=== PATIENT | male | born 1980 | race Caucasian/White ===

== ENCOUNTER 2020-05-27 08:35 | Outpatient (REF) | payer OTHER, SELFPAY ==
[2020-05-27 09:59] LABS: MANUAL DIFF FLAG NO
[2020-05-27 10:18] LABS: Estimated Average Glucose 108 mg/dL; Hemoglobin A1c % 5.4 %
[2020-05-27 10:24] LABS: Basophils Percent Auto 0.3 % (0-2); Eosinophils Absolute Auto 0.1 X10*3/uL (0.0-0.4); Eosinophils Percent Auto 0.9 % (0-4); Hemoglobin 14.2 g/dl (14.0-18.0); Imm Gran Abs Auto 0.01 X10*3/uL (0.00-0.03); Imm Gran Pct Auto 0.1 % (0.0-0.4); Lymphocytes Absolute Auto 2.6 X10*3/uL (1.2-4.9); Lymphocytes Percent Auto 37.4 % (20-40); Mean Corpuscular Hemoglobin 28.3 pg (27.0-33.0); Mean Corpuscular Volume 85.8 fL (80-98); Mean Platelet Volume 10.2 fL (9.4-12.4); Monocytes Absolute Auto 0.5 X10*3/uL (0.1-1.2); Monocytes Percent Auto 7.3 % (2-11); Neutrophils Absolute Auto 3.8 X10*3/uL (2.0-8.3); Platelet Count 293 X10*3/uL (160-400); Red Blood Count 5.01 X10*6/uL (4.60-5.80); Red Cell Distribution Width 12.4 % (11.0-16.0)
[2020-05-27 10:51] LABS: Alanine Aminotransferase 25 U/L (0-40); Albumin Level 4.6 g/dL (3.5-5.0); Alkaline Phosphatase 93 U/L (39-117); Anion Gap 13 (12-20); Aspartate Amino Transferase 22 U/L (5-37); Bilirubin Total 0.3 mg/dL (0.0-1.0); Blood Urea Nitrogen 11 mg/dL (9-16); Calcium 9.3 mg/dL (8.4-10.2); Carbon Dioxide 31 mmol/L (22-29); Chloride 102 mmol/L (96-108); Cholesterol 227 mg/dL; Estimated Glomerular Filt Rate > 60; Glucose Random 105 mg/dL (60-115); HDL Cholesterol 43 mg/dL; LDL Cholesterol Calculated 164 mg/dl; Potassium 4.7 mmol/L (3.3-5.1); Sodium 141 mmol/L (135-145); Total Protein 7.3 g/dL (6.5-8.0); Triglycerides 102 mg/dL
[2020-05-27 11:15] LABS: Free T4 (Free Thyroxine) 0.95 ng/dL (0.71-1.85); Thyroid Stimulating Hormone 1.52 uIU/mL (0.32-4.0)
[2020-05-29 05:29] LABS: Folate 7.2 ng/mL (> or = 4.0); Vitamin B12 856 pg/mL (200-900)
== END 2020-05-27 08:36 | disposition home or self-care (01) ==
LOC: HO.LAB 08:35
PROVIDERS: Visit Provider Internal Medicine
DX: R73.02 Impaired glucose tolerance (oral) (principal); E78.00 Pure hypercholesterolemia, unspecified
CPT/HCPCS: 36415; 80053; 80061; 82607; 82746; 83036; 84439; 84443; 85025

== ENCOUNTER 2021-07-10 11:30 | Outpatient (REF) | payer OTHER, SELFPAY ==
--- NOTE | ~2021-07-10 | XR_ITS ---
EXAMINATION: XR LUMBOSACRAL SPINE CLINICAL INFORMATION: Lower back pain COMPARISON: 03/10/2014 TECHNIQUE: Three views of the lumbosacral spine. FINDINGS: No acute fracture or traumatic malalignment. Vertebral body heights maintained. Disc space heights preserved. Small endplate osteophytes present throughout the lumbar spine. Mild facet arthropathy L4-5 and L5-S1. Mild bilateral sacroiliac arthrosis. Paraspinal soft tissues unremarkable. XR/XR lumbar spine 2-3V IMPRESSION: No acute findings. Small endplate osteophytes present throughout the lumbar spine.
== END 2021-07-10 11:31 | disposition home or self-care (01) ==
LOC: HO.XRAY 11:30
PROVIDERS: PCP Internal Medicine; Visit Provider Internal Medicine
DX: M54.50 Low back pain, unspecified (principal)
CPT/HCPCS: 72100

== ENCOUNTER 2021-11-12 09:51 | Outpatient (REF) | payer OTHER, SELFPAY ==
[2021-11-12 10:17] LABS: MANUAL DIFF FLAG NO
[2021-11-12 10:45] LABS: Basophils Percent Auto 0.5 % (0-2); Eosinophils Absolute Auto 0.1 X10*3/uL (0.0-0.4); Eosinophils Percent Auto 1.3 % (0-4); Hematocrit 41.1 % (42.0-52.0); Hemoglobin 13.8 g/dl (14.0-18.0); Imm Gran Abs Auto 0.02 X10*3/uL (0.00-0.03); Imm Gran Pct Auto 0.3 % (0.0-0.4); Lymphocytes Absolute Auto 2.6 X10*3/uL (1.2-4.9); Lymphocytes Percent Auto 43.1 % (20-40); Mean Corpuscular HGB Conc 33.6 g/dl (31.0-36.0); Mean Corpuscular Hemoglobin 28.5 pg (27.0-33.0); Mean Corpuscular Volume 84.9 fL (80.0-98.0); Mean Platelet Volume 9.5 fL (9.4-12.4); Monocytes Absolute Auto 0.5 X10*3/uL (0.1-1.2); Monocytes Percent Auto 8.6 % (2-11); Neutrophils Absolute Auto 2.8 x10*3/uL (2.0-8.3); Neutrophils Percent Auto 46.2 % (45-73); Platelet Count 300 X10*3/uL (160-400); Red Blood Count 4.84 X10*6/uL (4.60-5.80); Red Cell Distribution Width 12.3 % (11.0-16.0)
[2021-11-12 10:55] LABS: Estimated Average Glucose 105 mg/dL; Hemoglobin A1c % 5.3 %
[2021-11-12 11:24] LABS: Alanine Aminotransferase 32 U/L (0-40); Albumin Level 4.5 g/dL (3.5-5.0); Alkaline Phosphatase 98 U/L (39-117); Anion Gap 15 (12-20); Aspartate Amino Transferase 26 U/L (5-37); Bilirubin Total 0.4 mg/dL (0.0-1.0); Blood Urea Nitrogen 10 mg/dL (9-16); Calcium 9.4 mg/dL (8.4-10.2); Carbon Dioxide 29 mmol/L (22-29); Chloride 101 mmol/L (96-108); Cholesterol 248 mg/dL; Estimated Glomerular Filt Rate > 60; Glucose Random 116 mg/dL (60-115); HDL Cholesterol 41 mg/dL; LDL Cholesterol Calculated 179 mg/dl; Potassium 4.1 mmol/L (3.3-5.1); Sodium 141 mmol/L (135-145); Total Protein 7.1 g/dL (6.5-8.0); Triglycerides 143 mg/dL
[2021-11-12 11:35] LABS: Free T4 (Free Thyroxine) 0.94 ng/dL (0.71-1.85); Thyroid Stimulating Hormone 1.09 uIU/mL (0.32-4.0)
[2021-11-12 12:12] LABS: Folate 6.8 ng/mL (> or = 4.0); Vitamin B12 858 pg/mL (200-900)
== END 2021-11-12 09:52 | disposition home or self-care (01) ==
LOC: HO.LAB 09:51
PROVIDERS: PCP Internal Medicine; Visit Provider Internal Medicine
DX: R73.02 Impaired glucose tolerance (oral) (principal); E78.00 Pure hypercholesterolemia, unspecified
CPT/HCPCS: 36415; 80053; 80061; 82607; 82746; 83036; 84439; 84443; 85025

== ENCOUNTER 2022-11-11 07:06 | Outpatient (REF) | payer OTHER, SELFPAY ==
[2022-11-11 07:15] LABS: MANUAL DIFF FLAG NO
[2022-11-11 08:17] LABS: Basophils Percent Auto 0.5 % (0-2); Eosinophils Absolute Auto 0.1 X10*3/uL (0.0-0.4); Eosinophils Percent Auto 1.4 % (0-4); Hematocrit 40.9 % (42.0-52.0); Hemoglobin 13.7 g/dl (14.0-18.0); Imm Gran Abs Auto 0.02 X10*3/uL (0.00-0.03); Imm Gran Pct Auto 0.3 % (0.0-0.4); Immature Retic Fraction 5.7 % (2.3-13.4); Lymphocytes Absolute Auto 2.7 X10*3/uL (1.2-4.9); Lymphocytes Percent Auto 35.4 % (20-40); Mean Corpuscular HGB Conc 33.5 g/dl (31.0-36.0); Mean Corpuscular Hemoglobin 29.3 pg (27.0-33.0); Mean Corpuscular Volume 87.4 fL (80.0-98.0); Mean Platelet Volume 10.2 fL (9.4-12.4); Monocytes Absolute Auto 0.5 X10*3/uL (0.1-1.2); Monocytes Percent Auto 7.1 % (2-11); Neutrophils Absolute Auto 4.2 x10*3/uL (2.0-8.3); Neutrophils Percent Auto 55.3 % (45-73); Platelet Count 254 X10*3/uL (160-400); Red Blood Count 4.68 X10*6/uL (4.60-5.80); Red Cell Distribution Width 12.2 % (11.0-16.0); Retic HGB Equivalent 34.9 pg (30.0-35.0); Reticulocytes Absolute 0.047 X10*6/uL (0.026-0.095); White Blood Count 7.6 X10*3/uL (4.8-10.8)
[2022-11-11 08:49] LABS: Iron 86 mcg/dL (45-160); Percent Iron Saturation 31 % (15-50); Total Iron Binding Capacity 275 mcg/dL (228-428); Unsaturated Iron Binding 189 ug/dL
[2022-11-11 09:09] LABS: Ferritin 77 ng/mL (20-250)
[2022-11-11 09:15] LABS: Folate 8.6 ng/mL (> or = 4.0); Vitamin B12 945 pg/mL (200-900)
== END 2022-11-11 07:07 | disposition home or self-care (01) ==
LOC: HO.LAB 07:06
PROVIDERS: PCP Internal Medicine; Visit Provider Internal Medicine
DX: D64.9 Anemia, unspecified (principal)
CPT/HCPCS: 36415; 82607; 82728; 82746; 83540; 85025; 85045

== ENCOUNTER 2022-11-22 10:04 | Outpatient (AMB) | payer OTHER, SELFPAY ==
[2022-11-22 10:16] VITALS: BP 118/82; PULSE 92; O2SAT 98; BMI 25.4
--- NOTE | 2022-11-22 10:16 | A.OFFPC_ITS ---
Vital Signs 11/22/22 10:16 Height 5 ft 9 in Weight 172 lb BMI 25.4 BP 118/82 Blood Pressure Location Lt brachial Position Sitting Pulse 92 Pulse Source Pulse Oximeter Pulse Oximetry (%) 98 Oxygen Delivery Method Room Air Intake Visit Reasons: PE Allergies No Known Allergies Allergy (Verified 11/22/22 10:18) Medication List - Last Reconciled 11/22/22 by Hiren Christian MD clonazepam 0.5 mg PO BID 30 days ketoconazole 2% 1 appl topical BID methadone 35 mg PO DAILY Tobacco use date assessed: 11/22/22 Dental Screening Dental Screen Date: 11/22/22 Did you have a dental visit in the last 12 months?: Yes Did you have a dental problem in the last 6 months where you did not have access to dental care?: No Was dental information given to patient?: Patient has dentist HPI PE HPI Details 42-year-old male with a history of polysubstance abuse GERD hypercholesterolemia impaired glucose tolerance generalized anxiety disorder and chronic anemia last seen in January 2022. Patient is here for physical exam. Complete blood work was done in 2021 showing an elevated cholesterol and anemia. The follow-up blood work for anemia is seen this is stable with normal iron and vitamin B12 [facility] Medical History (Updated 11/22/22 @ 10:59 by Hiren Christian MD) Anxiety and depression GERD (gastroesophageal reflux disease) Hypercholesterolemia Polysubstance abuse Surgical History (Updated 03/07/20 @ 09:16 by Mel Kim [facility]) No pertinent past surgical history Family History (Updated 11/22/22 @ 10:20 by Marleny Hook CMA) Father CVD (cardiovascular disease) Mother No problems noted. Paternal Grandmother Lung cancer Paternal Grandfather Cancer Maternal Uncle Dementia Other Substance use disorder Social History (Updated 05/30/20 @ 12:32 by Marleny Hook CMA) Housing: House Alcohol intake: never Patient Tobacco Use Status: Former Tobacco user Tobacco use type: Cigarette e-Cigarette/Vaping Use: Never Used Second Hand Smoke Exposure: No service: No Current occupational status: employed Cognitive needs: No Hearing needs: No Vision needs: No Questionnaire PHQ-9 Over the last 2 weeks, how often have you been bothered by any of the following problems? 1. Little interest or pleasure in doing things: more than half the days 2. Feeling down, depressed, or hopeless: more than half the days 3. Trouble falling or staying asleep, or sleeping too much: more than half the days 4. Feeling tired or having little energy: more than half the days 5. Poor appetite or overeating: not at all 6. Feeling bad about yourself - or that you are a failure or have let yourself or your family down: not at all 7. Trouble concentrating on things, such as reading the newspaper or watching television: not at all 8. Moving or speaking so slowly that other people could have noticed. Or the opposite - being so fidgety or restless that you have been moving around a lot more than usual: not at all 9. Thoughts that you would be better off or of hurting yourself in some way: not at all Total score: 8 Depression Screening Interpretation: Positive Source: Developed by Drs. Ferny Mina, Ella Mccabe, Ubaldo Horn and colleagues, with an educational madeleine from [employer]. Thrive Questionnaire Date Thrive assessed: 11/22/22 I am a: Patient What is your living situation today?: I have a steady place to live Within the past 12 months, did the food you bought not last and you didn't have the money to get more?: Never true Within the past 12 months, did you worry whether your food would run out before you got money to buy more?: Never true Do you have trouble paying for medicines?: No Do you have trouble getting transportation to medical appointments?: No Do you have trouble paying your heating and electricity bill?: No Do you have trouble taking care of your child, family member or friend?: No Do you have trouble with day-to-day activities such as bathing, preparing meals, shopping, managing finances, etc.?: No Are you currently unemployed and looking for a job?: No Are you interested in more education?: No Currently or been in a relationship where the following occur: no concerns reported AUDIT C Alcohol Use Questionnaire (AUDIT-C) 1. How often do you have a drink containing alcohol?: Never 2. How many drinks containing alcohol do you have on a typical day when you are drinking?: 1 or 2 (0) 3. How often do you have six or more drinks on one occasion?: Never Total Score: 0 UTE-7 AMB Questionnaire UTE-7 Date UTE - 7 assessed: 11/22/22 Feeling nervous, anxious, or on edge: 0 = Not at all Not being able to stop or control worryin = Not at all Worrying too much about different things: 0 = Not at all Trouble relaxin = Not at all Being so restless that it is hard to sit still: 0 = Not at all Becoming easily annoyed or irritable: 0 = Not at all Feeling afraid as if something awful might happen: 0 = Not at all Total UTE-7 score (0-4 normal; 5-9 mild; 10-14 moderate; 15-21 severe): 0 Source: Developed by Drs. Ferny Mina, Ella Mccabe, Ubaldo Horn and colleagues, with an educational madeleine from [employer]. Review of Systems Const Denies poor appetite and Denies weakness Eyes Denies no additional complaints ENT Reports Normal hearing present, Denies dizziness, Denies nasal congestion, Denies tinnitus and Denies sore throat Card Denies chest pain, Denies syncope, Denies rapid heart rate and Denies dyspnea Resp Denies cough and Denies dyspnea GI Denies change in stool character, Reports constipation, Denies diarrhea, Denies nausea and Denies vomiting Denies dysuria and Denies urinary frequency Neuro Reports Normal hearing present, Denies confusion, Denies dizziness, Denies syncope and Denies weakness Psych Denies confusion Physical exam (Primary Care) Vital Signs: Last Vital Signs Pulse 92 11/22/22 10:16 BP 118/82 11/22/22 10:16 Pulse Ox 98 11/22/22 10:16 Oxygen Delivery Method Room Air 11/22/22 10:16 BMI result Body Mass Index 25.4 Tobacco/Smoking Status: Tobacco use Status Tobacco use date assessed 11/22/22 11/22/22 10:22 Patient Tobacco Use Status Former Tobacco user 11/22/22 10:22 Tobacco use type Cigarette 11/22/22 10:22 e-Cigarette/Vaping Use Never Used 11/22/22 10:22 PHQ-9: PHQ-9 Score PHQ-9: Total score 8 11/22/22 10:22 Depression Screening Interpretation: Positive Thrive Assessment: Date of Thrive Assessment Date Thrive assessed 11/22/22 11/22/22 10:22 Currently or been in a relationship where the following occur: no concerns reported Const General: No confusion Orientation/consciousness: No confusion HENMT Head: Yes normocephalic Ears: external ears normal and TM's normal bilaterally Face and sinus: Yes normal facial exam Mouth: moist mucous membranes Throat: Yes tonsils normal Eyes Conjunctivae: conjunctivae normal Pupils: Equal, round and reactive pupils present and Pupil accommodation reflex normal Direct Ophthalmoscopy: normal light reflex Neck Neck: No lymphadenopathy Thyroid: Thyroid normal Chest Chest palpation & inspection: normal inspection of the chest Resp Effort & Inspection: normal respiratory effort and no audible wheezes Auscultation: clear to auscultation bilaterally, no crackles, no wheezes and lung sounds not diminished Cardio Rate: regular rate Rhythm: regular rhythm Peripheral pulses: radial pulses present and dorsalis pedis present GI Palpation (GI): no masses Auscultation: normal bowel sounds and normoactive bowel sounds Rectal Exam - Male: Yes deferred Skin General skin exam: no rashes or lesions noted Rashes: no rashes Neuro General: No confusion Cranial nerves: Yes Equal, round and reactive pupils present and Yes Normal hearing present Cognition (Neuro): normal cognition Gait exam (Neuro): Normal gait present Motor exam (neuro): 5/5 motor strength present throughout Deep tendon reflexes (DTR's): Right brachioradialis reflex intensity grade: 2+, Left brachioradialis reflex intensity grade: 2+, Right patellar reflex intensity grade: 2+ and Left patellar reflex intensity grade: 2+ Extrem General: No edema Assessment and Plan Assessment & Plan (1) Annual physical exam: Code(s): Z00.00 - Encounter for general adult medical examination without abnormal findings (2) Polysubstance abuse: Code(s): F19.10 - Other psychoactive substance abuse, uncomplicated Plan: Continue with the methadone clinic (3) Impaired glucose tolerance: Code(s): R73.02 - Impaired glucose tolerance (oral) Plan: Decrease the amount of carbohydrate intake, pasta, bread, rice and potatoes are all sugar and that is aside from all the sweet stuff, remember that fruits are good but they are Sweet also. (4) Hypercholesterolemia: Code(s): E78.00 - Pure hypercholesterolemia, unspecified Plan: Avoid fried foods, chicken skin, eggs, butter margarine, pastries and meat. Be it pork or beef they have a lot of cholesterol LDL goal of less than 130 and triglyceride of less than 150. Last blood work was done in April 2021 (5) GERD (gastroesophageal reflux disease): Code(s): K21.9 - Gastro-esophageal reflux disease without esophagitis Plan: Avoid the foods that causes that usually spicy foods, tomato products, juices, coffee, soda and foods that your sensitive to. After eating do not lie down, allow 3-4 hours before in lie down. And keep the head of bed above 30 degrees to avoid the acid from going up. (6) Generalized anxiety disorder: Comment: Panic attacks declined counseling January 2021, [facility] counselling (10/2021) Code(s): F41.1 - Generalized anxiety disorder Plan: Continue with counseling and therapy (7) Anemia: Code(s): D64.9 - Anemia, unspecified Plan: Stable with normal iron and vitamin B12 Orders: Orders [place] upper GI series Today K21.9 - Gastro-esophageal reflux disease without esophagitis, R13.10 - Dysphagia, unspecified Coding Level of Care Code Est Pt Prev Care 40-64y(48278) Diagnoses Annual physical exam Z00.00 Polysubstance abuse F19.10 Impaired glucose tolerance R73.02 Hypercholesterolemia E78.00 GERD (gastroesophageal reflux disease) K21.9 Generalized anxiety disorder F41.1 Anemia D64.9
== END 2022-11-22 11:01 | disposition home or self-care (01) ==
PROVIDERS: PCP Internal Medicine; Visit Provider Internal Medicine
DX: Z00.00 Encounter for general adult medical examination without abnormal findings (principal); K21.9 Gastro-esophageal reflux disease without esophagitis; F19.10 Other psychoactive substance abuse, uncomplicated; R73.02 Impaired glucose tolerance (oral); E78.00 Pure hypercholesterolemia, unspecified; F41.1 Generalized anxiety disorder; D64.9 Anemia, unspecified
CPT/HCPCS: 99396

== ENCOUNTER 2023-03-05 11:10 | Outpatient (AMB) | payer OTHER, SELFPAY ==
[2023-03-05 11:15] VITALS: BP 134/90; PULSE 122; O2SAT 95; BMI 24.9
--- NOTE | 2023-03-05 11:15 | A.OFFPC_ITS ---
Vital Signs 03/05/23 11:15 03/05/23 12:06 Height 5 ft 9 in Weight 168 lb 8 oz BMI 24.9 BP 134/90 H 120/70 Blood Pressure Location Lt brachial Lt brachial Position Sitting Sitting Pulse 122 H 110 H Pulse Source Pulse Oximeter Auscultation Pulse Oximetry (%) 95 Oxygen Delivery Method Room Air Intake Visit Reasons: 3mon f/u Crm Specialist Required: No Accompanied by: Self / Same As Patient Allergies No Known Allergies Allergy (Verified 03/05/23 11:15) Tobacco use date assessed: 11/22/22 Dental Screening Dental Screen Date: 03/05/23 Did you have a dental visit in the last 12 months?: Yes Did you have a dental problem in the last 6 months where you did not have access to dental care?: No Was dental information given to patient?: Patient has dentist HPI 3mon f/u HPI Details 42-year-old male with a history of impai red glucose tolerance hypercholesterolemia GERD and generalized anxiety disorder last seen in November 2022 patient is here for follow-up. RESCHEDULED xray due to - (sister broke foot and daniela ) notedx tachcardic - state drink caffeine PFSH Medical History (Updated 11/22/22 @ 10:59 by Hiren Christian MD) Hypercholesterolemia GERD (gastroesophageal reflux disease) Anxiety and depression Polysubstance abuse Surgical History No pertinent past surgical history Family History Father CVD (cardiovascular disease) Mother No problems noted. Paternal Grandmother Lung cancer Paternal Grandfather Cancer Maternal Uncle Dementia Other Substance use disorder Social History Housing: House Alcohol intake: never Patient Tobacco Use Status: Former Tobacco user Tobacco use type: Cigarette e-Cigarette/Vaping Use: Never Used Second Hand Smoke Exposure: No service: No Current occupational status: employed Cognitive needs: No Hearing needs: No Vision needs: No Questionnaire Thrive Questionnaire Date Thrive assessed: 11/22/22 UTE-7 AMB Questionnaire UTE-7 Date UTE - 7 assessed: 11/22/22 Source: Developed by Drs. Ferny Mina, Ella B.W. Ubaldo Mccabe and colleagues, with an educational madeleine from [employer]. Physical exam (Primary Care) Vital Signs: Last Vital Signs Pulse 110 H 03/05/23 12:06 BP 120/70 03/05/23 12:06 Pulse Ox 95 03/05/23 11:15 Oxygen Delivery Method Room Air 03/05/23 11:15 BMI result Body Mass Index 24.9 Tobacco/Smoking Status: Tobacco use Status Tobacco use date assessed 11/22/22 03/05/23 11:16 Patient Tobacco Use Status Former Tobacco user 03/05/23 11:16 Tobacco use type Cigarette 03/05/23 11:16 e-Cigarette/Vaping Use Never Used 03/05/23 11:16 Thrive Assessment: Date of Thrive Assessment Date Thrive assessed 11/22/22 03/05/23 11:16 Const General: alert; No acute distress Eyes Conjunctivae: conjunctivae normal Resp Auscultation: clear to auscultation bilaterally Cardio Rate: regular rate Rhythm: regular rhythm GI Inspection: Yes normal to inspection Extrem General: Yes normal to inspection and No edema Office Procedures Flu Questionnaire Does the patient have a severe egg allergy?: No Does the patient have severe life threatening allergies?: No Does the patient have a fever or illness today?: No Has the patient ever had Guillain-Franklin Syndrome?: No Has the patient ever had any past reaction to a flu shot?: No Immunizations flu vacc [id number] 6mos up(PF) 60 mcg(15 mcgx4)/0.5 mL IM syringe Performing Provider: Hiren Christian MD [facility] [place] Documented (not given) by: CAT Choi on 03/05/23 12:15 Reason Not Given: Not Given Assessment and Plan Assessment & Plan (1) Generalized anxiety disorder: Comment: Panic attacks declined counseling January 2021, [facility] counselling (10/2021) Code(s): F41.1 - Generalized anxiety disorder Plan: Continue with present medication and counseling (2) Anemia: Code(s): D64.9 - Anemia, unspecified Plan: Continuing to monitor (3) Polysubstance abuse: Code(s): F19.10 - Other psychoactive substance abuse, uncomplicated Plan: Continue with methadone clinic (4) GERD (gastroesophageal reflux disease): Code(s): K21.9 - Gastro-esophageal reflux disease without esophagitis Plan: Avoid the foods that causes that usually spicy foods, tomato products, juices, coffee, soda and foods that your sensitive to. After eating do not lie down, allow 3-4 hours before in lie down. And keep the head of bed above 30 degrees to avoid the acid from going up. Orders: Orders Complete Blood Count Auto Diff Today R73.02 - Impaired glucose tolerance (oral) Free T4 (Free Thyroxine) Today R73.02 - Impaired glucose tolerance (oral) Thyroid Stimulating Hormone Today R73.02 - Impaired glucose tolerance (oral) UA w Microscopic Today R73.02 - Impaired glucose tolerance (oral) Comprehensive Met. Panel Today R73.02 - Impaired glucose tolerance (oral) Lipid Panel Today E78.00 - Pure hypercholesterolemia, unspecified, R73.02 - Impaired glucose tolerance (oral) Vitamin B12 and Folate Today R73.02 - Impaired glucose tolerance (oral) Hemoglobin A1c Today R73.02 - Impaired glucose tolerance (oral) Drug Screen Urine Today R73.02 - Impaired glucose tolerance (oral) Influenza [id number] Immunization Today Z23 - Encounter for immunization Coding Level of Care Code Est Pt Level 4 (06505) Diagnoses Generalized anxiety disorder F41.1 Anemia D64.9 Polysubstance abuse F19.10 GERD (gastroesophageal reflux disease) K21.9
[2023-03-05 12:06] VITALS: BP 120/70; PULSE 110
== END 2023-03-05 12:17 | disposition home or self-care (01) ==
PROVIDERS: PCP Internal Medicine; Visit Provider Internal Medicine
DX: Z23 Encounter for immunization (principal)
CPT/HCPCS: 90471; 90686; 99214

== ENCOUNTER 2023-06-09 09:01 | Outpatient (REF) | payer OTHER, SELFPAY ==
[2023-06-09 09:23] LABS: MANUAL DIFF FLAG NO
[2023-06-09 09:48] LABS: Basophils Percent Auto 0.5 % (0-2); Eosinophils Absolute Auto 0.1 X10*3/uL (0.0-0.4); Hematocrit 38.1 % (42.0-52.0); Hemoglobin 12.9 g/dl (14.0-18.0); Imm Gran Abs Auto 0.02 X10*3/uL (0.00-0.03); Imm Gran Pct Auto 0.3 % (0.0-0.4); Lymphocytes Absolute Auto 2.8 X10*3/uL (1.2-4.9); Lymphocytes Percent Auto 46.7 % (20-40); Mean Corpuscular HGB Conc 33.9 g/dl (31.0-36.0); Mean Corpuscular Hemoglobin 29.1 pg (27.0-33.0); Mean Corpuscular Volume 85.8 fL (80.0-98.0); Mean Platelet Volume 9.8 fL (9.4-12.4); Monocytes Absolute Auto 0.5 X10*3/uL (0.1-1.2); Monocytes Percent Auto 7.5 % (2-11); Neutrophils Absolute Auto 2.6 x10*3/uL (2.0-8.3); Platelet Count 244 X10*3/uL (160-400); Red Blood Count 4.44 X10*6/uL (4.60-5.80); Red Cell Distribution Width 12.4 % (11.0-16.0)
[2023-06-09 09:49] LABS: Appearance Urine Clear; Color Urine Yellow; Glucose Urine UA Negative (Negative); Leukocyte Esterase Urine Negative (Negative); Nitrite Urine Negative (Negative); Specific Gravity - Urine 1.015 (1.005-1.025); UMIC TRIGGER UA YES; Urine Blood Trace (Negative); Urine Ketones Negative (Negative); Urine Protein Negative (Neg-Trace)
[2023-06-09 09:51] LABS: Bacteria Urine None Seen (None Seen); Hyaline Casts Urine 0-2 /LPF (0-2); Squamous Epithelial Cell Urine 0-2 /HPF (0-2); WBC Urine 0-5 /HPF (0-5)
[2023-06-09 09:59] LABS: Amphetamine Screen Urine Not Detected (Not Detect); Barbiturates, Urine Not Detected (Not Detect); Benzodiazepines Screen Urine Not Detected (Not Detect); Cannabinoid Screen Urine POSITIVE (Not Detect); Cocaine Screen Urine Not Detected (Not Detect); Fentanyl, urine Not Detected (Not Detect); Opiate Screen Urine Not Detected (Not Detect); Phencyclidine Screen Urine Not Detected (Not Detect)
[2023-06-09 10:02] LABS: Estimated Average Glucose 103 mg/dL; Hemoglobin A1c % 5.2 % (<6.0)
[2023-06-09 10:49] LABS: Alanine Aminotransferase 16 U/L (0-40); Albumin Level 4.4 g/dL (3.5-5.0); Alkaline Phosphatase 81 U/L (39-117); Anion Gap 12 (12-20); Aspartate Amino Transferase 21 U/L (5-37); Bilirubin Total 0.2 mg/dL (0.0-1.0); Blood Urea Nitrogen 9 mg/dL (9-16); Calcium 9.3 mg/dL (8.4-10.2); Carbon Dioxide 31 mmol/L (22-29); Chloride 103 mmol/L (96-108); Cholesterol 193 mg/dL (<200); Estimated Glomerular Filt Rate > 60; Glucose Random 119 mg/dL (60-115); HDL Cholesterol 36 mg/dL (>40); LDL Cholesterol Calculated 131 mg/dL (<100); Sodium 142 mmol/L (135-145); Total Protein 7.1 g/dL (6.5-8.0); Triglycerides 130 mg/dL (<150)
[2023-06-09 11:05] LABS: Free T4 (Free Thyroxine) 0.94 ng/dL (0.71-1.85); Thyroid Stimulating Hormone 1.32 uIU/mL (0.32-4.0)
[2023-06-09 12:27] LABS: Folate 9.8 ng/mL (> or = 4.0); Vitamin B12 950 pg/mL (200-900)
== END 2023-06-09 09:02 | disposition home or self-care (01) ==
LOC: HO.LAB 09:01
PROVIDERS: PCP Internal Medicine; Visit Provider Internal Medicine
DX: R73.02 Impaired glucose tolerance (oral) (principal); E78.00 Pure hypercholesterolemia, unspecified
CPT/HCPCS: 80053; 80061; 80307; 81001; 82607; 82746; 83036; 84439; 84443; 85025

== ENCOUNTER 2023-06-09 09:45 | Outpatient (AMB) | payer OTHER, SELFPAY ==
[2023-06-09 09:51] VITALS: BP 130/82; PULSE 130; O2SAT 98; BMI 24.2
--- NOTE | 2023-06-09 09:51 | MHC.PC.OV ---
Vital Signs 06/09/23 09:51 Height 5 ft 9 in Weight 164 lb BMI 24.2 BP 130/82 Blood Pressure Location Lt brachial Position Sitting Pulse 130 H Pulse Source Pulse Oximeter Pulse Oximetry (%) 98 Oxygen Delivery Method Room Air Intake Visit Reasons: UTE Intake Note: Patient is here to follow up on UTE Transportation Department Head Required: No Allergies No Known Allergies Allergy (Verified 06/09/23 09:52) Medication List - Last Reconciled 06/09/23 by Hiren Christian MD clonazepam 0.5 mg PO BID 30 days ketoconazole 2% 1 appl topical BID methadone 35 mg PO DAILY Tobacco use date assessed: 06/09/23 Dental Screening Dental Screen Date: 06/09/23 Did you have a dental visit in the last 12 months?: No Did you have a dental problem in the last 6 months where you did not have access to dental care?: No HPI UTE HPI Details 42-year-old male with a history of polysubstance abuse generalized anxiety disorder and GERD last seen in February 2023. [facility] Medical History (Updated 11/22/22 @ 10:59 by Hiren Christian MD) Hypercholesterolemia GERD (gastroesophageal reflux disease) Anxiety and depression Polysubstance abuse Surgical History No pertinent past surgical history Family History Father CVD (cardiovascular disease) Mother No problems noted. Paternal Grandmother Lung cancer Paternal Grandfather Cancer Maternal Uncle Dementia Other Substance use disorder Social History Housing: House Alcohol intake: never Patient Tobacco Use Status: Former Tobacco user Tobacco use type: Cigarette e-Cigarette/Vaping Use: Never Used Second Hand Smoke Exposure: No service: No Current occupational status: employed Cognitive needs: No Hearing needs: No Vision needs: No Questionnaire PHQ-9 Over the last 2 weeks, how often have you been bothered by any of the following problems? 1. Little interest or pleasure in doing things: not at all 2. Feeling down, depressed, or hopeless: not at all 3. Trouble falling or staying asleep, or sleeping too much: not at all 4. Feeling tired or having little energy: not at all 5. Poor appetite or overeating: not at all 6. Feeling bad about yourself - or that you are a failure or have let yourself or your family down: not at all 7. Trouble concentrating on things, such as reading the newspaper or watching television: not at all 8. Moving or speaking so slowly that other people could have noticed. Or the opposite - being so fidgety or restless that you have been moving around a lot more than usual: not at all 9. Thoughts that you would be better off or of hurting yourself in some way: not at all Total score: 0 Depression Screening Interpretation: Negative Depression Screening Done: Yes Source: Developed by Drs. Ferny Mina, Ella Mccabe, Ubaldo Horn and colleagues, with an educational madeleine from [employer]. Thrive Questionnaire Date Thrive assessed: 06/09/23 I am a: Patient What is your living situation today?: I have a steady place to live Within the past 12 months, did the food you bought not last and you didn't have the money to get more?: Never true Within the past 12 months, did you worry whether your food would run out before you got money to buy more?: Never true Do you have trouble paying for medicines?: No Do you have trouble getting transportation to medical appointments?: No Do you have trouble paying your heating and electricity bill?: No Do you have trouble taking care of your child, family member or friend?: No Do you have trouble with day-to-day activities such as bathing, preparing meals, shopping, managing finances, etc.?: No Are you currently unemployed and looking for a job?: No Are you interested in more education?: No Please select the resources that you would like help with: None THRIVE Score: 0 AUDIT C Alcohol Use Questionnaire (AUDIT-C) 1. How often do you have a drink containing alcohol?: Never 2. How many drinks containing alcohol do you have on a typical day when you are drinking?: 1 or 2 (0) 3. How often do you have six or more drinks on one occasion?: Never Total Score: 0 UTE-7 AMB Questionnaire UTE-7 Date UTE - 7 assessed: 06/09/23 Feeling nervous, anxious, or on edge: 3 = Nearly every day Not being able to stop or control worryin = Nearly every day Worrying too much about different things: 3 = Nearly every day Trouble relaxin = Nearly every day Being so restless that it is hard to sit still: 3 = Nearly every day Becoming easily annoyed or irritable: 3 = Nearly every day Feeling afraid as if something awful might happen: 0 = Not at all Total UTE-7 score (0-4 normal; 5-9 mild; 10-14 moderate; 15-21 severe): 18 Source: Developed by Drs. Ferny Mina, Ella Mccabe, Ubaldo Horn and colleagues, with an educational madeleine from [employer]. Physical exam (Primary Care) Vital Signs: Last Vital Signs Pulse 130 H 06/09/23 09:51 BP 130/82 06/09/23 09:51 Pulse Ox 98 06/09/23 09:51 Oxygen Delivery Method Room Air 06/09/23 09:51 BMI result Body Mass Index 24.2 Tobacco/Smoking Status: Tobacco use Status Tobacco use date assessed 06/09/23 06/09/23 09:56 Patient Tobacco Use Status Former Tobacco user 06/09/23 09:56 Tobacco use type Cigarette 06/09/23 09:56 e-Cigarette/Vaping Use Never Used 06/09/23 09:56 PHQ-9: PHQ-9 Score PHQ-9: Total score 0 06/09/23 10:01 Depression Screening Interpretation: Negative Thrive Assessment: Date of Thrive Assessment Date Thrive assessed 06/09/23 06/09/23 09:56 Const General: alert; No acute distress Eyes Conjunctivae: conjunctivae normal Resp Auscultation: clear to auscultation bilaterally Cardio Rate: regular rate Rhythm: regular rhythm GI Inspection: Yes normal to inspection Extrem General: Yes normal to inspection and No edema Assessment and Plan Assessment & Plan (1) Anemia: Code(s): D64.9 - Anemia, unspecified Plan: Awaiting blood work (2) Generalized anxiety disorder: Comment: Panic attacks declined counseling January 2021, [facility] counselling (10/2021) Code(s): F41.1 - Generalized anxiety disorder Plan: Continue with present medication but was not hlepful with the patient . will do another referral. (3) Hypercholesterolemia: Code(s): E78.00 - Pure hypercholesterolemia, unspecified Plan: Avoid fried foods, chicken skin, eggs, butter margarine, pastries and meat. Be it pork or beef they have a lot of cholesterol awaiting blood work LDL goal of less than 130 and triglyceride of less than 150 (4) GERD (gastroesophageal reflux disease): Code(s): K21.9 - Gastro-esophageal reflux disease without esophagitis Plan: Avoid the foods that causes that usually spicy foods, tomato products, juices, coffee, soda and foods that your sensitive to. After eating do not lie down, allow 3-4 hours before in lie down. And keep the head of bed above 30 degrees to avoid the acid from going up. Orders: Referrals Psychiatry Referral F41.1 - Generalized anxiety disorder Coding Level of Care Code Est Pt Level 4 (59752) Diagnoses Anemia D64.9 Generalized anxiety disorder F41.1 Hypercholesterolemia E78.00 GERD (gastroesophageal reflux disease) K21.9
== END 2023-06-09 10:34 | disposition home or self-care (01) ==
PROVIDERS: PCP Internal Medicine; Visit Provider Internal Medicine
DX: D64.9 Anemia, unspecified (principal); F41.1 Generalized anxiety disorder; E78.00 Pure hypercholesterolemia, unspecified; K21.9 Gastro-esophageal reflux disease without esophagitis
CPT/HCPCS: 99214

== ENCOUNTER 2023-09-30 09:56 | Outpatient (AMB) | payer OTHER, SELFPAY ==
[2023-09-30 10:03] VITALS: BP 118/72; PULSE 124; O2SAT 98; BMI 25.0
--- NOTE | 2023-09-30 10:03 | MHC.PC.OV ---
Vital Signs 09/30/23 10:03 Height 5 ft 9 in Weight 169 lb BMI 25.0 BP 118/72 Blood Pressure Location Lt brachial Position Sitting Pulse 124 H Pulse Source Pulse Oximeter Pulse Oximetry (%) 98 Oxygen Delivery Method Room Air Intake Visit Reasons: UTE Allergies No Known Allergies Allergy (Verified 09/30/23 10:03) Tobacco use date assessed: 06/09/23 Dental Screening Dental Screen Date: 06/09/23 HPI UTE HPI Details 43-year-old male with a history of chronic anemia generalized anxiety disorder hypercholesterolemia GERD impaired glucose tolerance last seen in 05/2023. Patient is here for follow-up complains of having diarrhea within the last couple of weeks did not indicate any new medication started or any change in diet. Patient is asking for a repeat blood work. Concern before of having an elevated blood sugar but the hemoglobin A1c was normal. And patient denies any intake of narcotic pain medication. [facility] Medical History (Updated 09/30/23 @ 10:22 by Hiren Christian MD) Hypercholesterolemia GERD (gastroesophageal reflux disease) Anxiety and depression Polysubstance abuse Surgical History No pertinent past surgical history Family History Father CVD (cardiovascular disease) Mother No problems noted. Paternal Grandmother Lung cancer Paternal Grandfather Cancer Maternal Uncle Dementia Other Substance use disorder Social History Housing: House Alcohol intake: never Patient Tobacco Use Status: Former Tobacco user Tobacco use type: Cigarette e-Cigarette/Vaping Use: Never Used Second Hand Smoke Exposure: No service: No Current occupational status: employed Cognitive needs: No Hearing needs: No Vision needs: No Questionnaire PHQ-9 Over the last 2 weeks, how often have you been bothered by any of the following problems? 1. Little interest or pleasure in doing things: not at all 2. Feeling down, depressed, or hopeless: not at all 3. Trouble falling or staying asleep, or sleeping too much: not at all 4. Feeling tired or having little energy: not at all 5. Poor appetite or overeating: not at all 6. Feeling bad about yourself - or that you are a failure or have let yourself or your family down: not at all 7. Trouble concentrating on things, such as reading the newspaper or watching television: not at all 8. Moving or speaking so slowly that other people could have noticed. Or the opposite - being so fidgety or restless that you have been moving around a lot more than usual: not at all 9. Thoughts that you would be better off or of hurting yourself in some way: not at all Total score: 0 Depression Screening Interpretation: Negative Depression Screening Done: Yes Source: Developed by Drs. Ferny Mina, Ella Mccabe, Ubaldo Horn and colleagues, with an educational madeleine from [employer]. Thrive Questionnaire Date Thrive assessed: 06/09/23 AUDIT C Alcohol Use Questionnaire (AUDIT-C) 1. How often do you have a drink containing alcohol?: Never 2. How many drinks containing alcohol do you have on a typical day when you are drinking?: 1 or 2 (0) 3. How often do you have six or more drinks on one occasion?: Never Total Score: 0 UTE-7 AMB Questionnaire UTE-7 Date UTE - 7 assessed: 06/09/23 Source: Developed by Drs. Ferny Mina, Ella Mccabe, Ubaldo Horn and colleagues, with an educational madeleine from [employer]. Physical exam (Primary Care) Vital Signs: Last Vital Signs Pulse 124 H 09/30/23 10:03 BP 118/72 09/30/23 10:03 Pulse Ox 98 09/30/23 10:03 Oxygen Delivery Method Room Air 09/30/23 10:03 BMI result Body Mass Index 25.0 Tobacco/Smoking Status: Tobacco use Status Tobacco use date assessed 06/09/23 09/30/23 10:06 Patient Tobacco Use Status Former Tobacco user 09/30/23 10:06 Tobacco use type Cigarette 09/30/23 10:06 e-Cigarette/Vaping Use Never Used 09/30/23 10:06 PHQ-9: PHQ-9 Score PHQ-9: Total score 0 09/30/23 10:06 Depression Screening Interpretation: Negative Thrive Assessment: Date of Thrive Assessment Date Thrive assessed 06/09/23 09/30/23 10:06 Const General: alert; No acute distress Eyes Conjunctivae: conjunctivae normal Resp Auscultation: clear to auscultation bilaterally Cardio Rate: regular rate Rhythm: regular rhythm GI Inspection: Yes normal to inspection Extrem General: Yes normal to inspection and No edema Assessment and Plan Assessment & Plan (1) Anemia: Code(s): D64.9 - Anemia, unspecified Plan: Chronic and stable will continue to monitor (2) Generalized anxiety disorder: Comment: Panic attacks declined counseling January 2021, [facility] counselling (10/2021) Code(s): F41.1 - Generalized anxiety disorder Plan: Continue with present medication and counseling and therapy (3) Hypercholesterolemia: Code(s): E78.00 - Pure hypercholesterolemia, unspecified Plan: Avoid fried foods, chicken skin, eggs, butter margarine, pastries and meat. Be it pork or beef they have a lot of cholesterol LDL goal of less than 130 and triglyceride of less than 150 (4) Impaired glucose tolerance: Code(s): R73.02 - Impaired glucose tolerance (oral) Plan: Decrease the amount of carbohydrate intake, pasta, bread, rice and potatoes are all sugar and that is aside from all the sweet stuff, remember that fruits are good but they are Sweet also.noted tachycardia (5) Tachycardia: Code(s): R00.0 - Tachycardia, unspecified Plan: work up before negative but tachycardia getting worse and heart rate increasing . will refer to cardiology (6) Diarrhea: Code(s): R19.7 - Diarrhea, unspecified Plan: will work up but discussed about diet and keeping well hydrated Orders: Orders Comprehensive Met. Panel Today R19.7 - Diarrhea, unspecified Hemoglobin A1c Today R19.7 - Diarrhea, unspecified Complete Blood Count Auto Diff Today R19.7 - Diarrhea, unspecified Thyroid Stimulating Hormone Today R19.7 - Diarrhea, unspecified Lipid Panel Today E78.00 - Pure hypercholesterolemia, unspecified, R19.7 - Diarrhea, unspecified Referrals Cardiology Referral R00.0 - Tachycardia, unspecified Coding Level of Care Code Est Pt Level 4 (21239) Diagnoses Anemia D64.9 Generalized anxiety disorder F41.1 Hypercholesterolemia E78.00 Impaired glucose tolerance R73.02 Tachycardia R00.0 Diarrhea R19.7
== END 2023-09-30 10:32 | disposition home or self-care (01) ==
PROVIDERS: PCP Internal Medicine; Visit Provider Internal Medicine
DX: D64.9 Anemia, unspecified (principal); F41.1 Generalized anxiety disorder; E78.00 Pure hypercholesterolemia, unspecified; R73.02 Impaired glucose tolerance (oral); R00.0 Tachycardia, unspecified; R19.7 Diarrhea, unspecified
CPT/HCPCS: 99214

== ENCOUNTER 2023-11-25 10:07 | Outpatient (AMB) | payer OTHER, SELFPAY ==
[2023-11-25 10:17] VITALS: BP 130/68; PULSE 138; O2SAT 98; BMI 25.1
--- NOTE | 2023-11-25 10:17 | MHC.PC.OV ---
Vital Signs 11/25/23 10:17 Height 5 ft 9 in Weight 170 lb BMI 25.1 BP 130/68 Blood Pressure Location Lt brachial Position Sitting Pulse 138 H Pulse Source Pulse Oximeter Pulse Oximetry (%) 98 Oxygen Delivery Method Room Air Intake Visit Reasons: PE Allergies No Known Allergies Allergy (Verified 11/25/23 10:17) Medication List - Last Reconciled 11/25/23 by Hiren Christian MD clonazepam 0.5 mg PO BID 30 days ketoconazole 2% 1 appl topical BID methadone 50 mg PO DAILY Tobacco use date assessed: 11/25/23 Dental Screening Dental Screen Date: 11/25/23 Did you have a dental visit in the last 12 months?: No Did you have a dental problem in the last 6 months where you did not have access to dental care?: No Was dental information given to patient?: No HPI PE HPI Details 43-year-old male with a history of hypercholesterolemia impaired glucose tolerance GERD polysubstance abuse in generalized anxiety disorder last seen in 12/12/2023. Patient is here for physical exam., heartburn, night sweats. - deny workup [facility] Medical History (Updated 11/25/23 @ 10:55 by Hiren Christian MD) Diarrhea Hypercholesterolemia GERD (gastroesophageal reflux disease) Anxiety and depression Polysubstance abuse Surgical History No pertinent past surgical history Family History Father CVD (cardiovascular disease) Mother No problems noted. Paternal Grandmother Lung cancer Paternal Grandfather Cancer Maternal Uncle Dementia Other Substance use disorder Social History (Updated 11/25/23 @ 10:47 by Hiren Christian MD) Housing: House Alcohol intake: never Patient Tobacco Use Status: Former Tobacco user Tobacco use type: Cigarette Years Smoked: marijuana e-Cigarette/Vaping Use: Never Used Second Hand Smoke Exposure: No service: No Current occupational status: employed Cognitive needs: No Hearing needs: No Vision needs: No Questionnaire PHQ-9 Over the last 2 weeks, how often have you been bothered by any of the following problems? 1. Little interest or pleasure in doing things: not at all 2. Feeling down, depressed, or hopeless: not at all 3. Trouble falling or staying asleep, or sleeping too much: not at all 4. Feeling tired or having little energy: not at all 5. Poor appetite or overeating: not at all 6. Feeling bad about yourself - or that you are a failure or have let yourself or your family down: not at all 7. Trouble concentrating on things, such as reading the newspaper or watching television: not at all 8. Moving or speaking so slowly that other people could have noticed. Or the opposite - being so fidgety or restless that you have been moving around a lot more than usual: not at all 9. Thoughts that you would be better off or of hurting yourself in some way: not at all Total score: 0 Depression Screening Interpretation: Negative Depression Screening Done: Yes Source: Developed by Drs. Ferny Mina, Ella Mccabe, Ubaldo Horn and colleagues, with an educational madeleine from [employer]. Thrive Questionnaire Date Thrive assessed: 11/25/23 I am a: Patient What is your living situation today?: I have a steady place to live Within the past 12 months, did the food you bought not last and you didn't have the money to get more?: Never true Within the past 12 months, did you worry whether your food would run out before you got money to buy more?: Never true Do you have trouble paying for medicines?: No Do you have trouble getting transportation to medical appointments?: No Do you have trouble paying your heating and electricity bill?: No Do you have trouble taking care of your child, family member or friend?: No Do you have trouble with day-to-day activities such as bathing, preparing meals, shopping, managing finances, etc.?: No Are you currently unemployed and looking for a job?: No Are you interested in more education?: No Currently or been in a relationship where the following occur: No concerns reported THRIVE Score: 0 AUDIT C Alcohol Use Questionnaire (AUDIT-C) 1. How often do you have a drink containing alcohol?: Never 2. How many drinks containing alcohol do you have on a typical day when you are drinking?: 1 or 2 (0) 3. How often do you have six or more drinks on one occasion?: Never Total Score: 0 UTE-7 AMB Questionnaire UTE-7 Date UTE - 7 assessed: 11/25/23 Feeling nervous, anxious, or on edge: 1 = Several days Not being able to stop or control worryin = Several days Worrying too much about different things: 1 = Several days Trouble relaxin = Several days Being so restless that it is hard to sit still: 1 = Several days Becoming easily annoyed or irritable: 0 = Not at all Feeling afraid as if something awful might happen: 1 = Several days Total UTE-7 score (0-4 normal; 5-9 mild; 10-14 moderate; 15-21 severe): 6 Source: Developed by Drs. Ferny Mina, Ella Mccabe, Ubaldo Horn and colleagues, with an educational madeleine from [employer]. UTE-7 Assessment Billing UTE-7 Assessment Tool: UTE-7 Assessment 01162 Review of Systems Const Denies poor appetite and Denies weakness Eyes Denies no additional complaints ENT Reports Normal hearing present, Denies dizziness, Denies nasal congestion, Denies tinnitus and Denies sore throat Card Denies chest pain, Denies syncope, Denies rapid heart rate and Denies dyspnea Resp Denies cough and Denies dyspnea GI Denies change in stool character, Reports constipation, Denies diarrhea, Denies nausea and Denies vomiting Denies dysuria and Denies urinary frequency Neuro Reports Normal hearing present, Denies confusion, Denies dizziness, Denies syncope and Denies weakness Psych Denies confusion Physical exam (Primary Care) Vital Signs: Last Vital Signs Pulse 138 H 11/25/23 10:17 BP 130/68 11/25/23 10:17 Pulse Ox 98 11/25/23 10:17 Oxygen Delivery Method Room Air 11/25/23 10:17 BMI result Body Mass Index 25.1 Tobacco/Smoking Status: Tobacco use Status Tobacco use date assessed 11/25/23 11/25/23 10:23 Patient Tobacco Use Status Former Tobacco user 11/25/23 10:47 Tobacco use type Cigarette 11/25/23 10:47 e-Cigarette/Vaping Use Never Used 11/25/23 10:47 PHQ-9: PHQ-9 Score PHQ-9: Total score 0 11/25/23 10:44 Depression Screening Interpretation: Negative Thrive Assessment: Date of Thrive Assessment Date Thrive assessed 09/03/24 09/03/24 10:23 Currently or been in a relationship where the following occur: No concerns reported Const General: No confusion Orientation/consciousness: No confusion HENMT Head: Yes normocephalic Ears: external ears normal and TM's normal bilaterally Face and sinus: Yes normal facial exam Mouth: moist mucous membranes Throat: Yes tonsils normal Eyes Conjunctivae: conjunctivae normal Pupils: Equal, round and reactive pupils present and Pupil accommodation reflex normal Direct Ophthalmoscopy: normal light reflex Neck Neck: No lymphadenopathy Thyroid: Thyroid normal Chest Chest palpation & inspection: normal inspection of the chest Resp Effort & Inspection: normal respiratory effort and no audible wheezes Auscultation: clear to auscultation bilaterally, no crackles, no wheezes and lung sounds not diminished Cardio Rate: regular rate Rhythm: regular rhythm Peripheral pulses: radial pulses present and dorsalis pedis present GI Other: guaiac neg, no external hemorrhoids Palpation (GI): no masses Auscultation: normal bowel sounds and normoactive bowel sounds Skin General skin exam: no rashes or lesions noted Rashes: no rashes Neuro General: No confusion Cranial nerves: Yes Equal, round and reactive pupils present and Yes Normal hearing present Cognition (Neuro): normal cognition Gait exam (Neuro): Normal gait present Motor exam (neuro): 5/5 motor strength present throughout Deep tendon reflexes (DTR's): Right brachioradialis reflex intensity grade: 2+, Left brachioradialis reflex intensity grade: 2+, Right patellar reflex intensity grade: 2+ and Left patellar reflex intensity grade: 2+ Extrem General: No edema Immunizations tetanus-diphtheria toxoids-Td 2 Lf unit-2 Lf unit/0.5 mL IM suspension Performing Provider: Hiren Christian MD Performing Location: [facility] Administered by: Marleny Hook CMA on 11/25/23 10:59 Dose Route Admin Location Dispensed Lot Number Expiration Date [employer] Distribution Clerk 0.5 mL IM Left Deltoid 0.5 mL [id number] 05/03/24 [address]-1 [employer] VIS Given Date VIS Provided VIS Publication Date 11/25/23 Single Vaccine 20 Eligibility Eligibility Date Funding Source Not [facility] Eligible 11/25/23 State funds Assessment and Plan Assessment & Plan (1) Annual physical exam: Code(s): Z00.00 - Encounter for general adult medical examination without abnormal findings Plan: Patient is advised to eat healthy, keep well hydrated, keep active and have adequate sleep. (2) Generalized anxiety disorder: Comment: Panic attacks declined counseling January 2021, [facility] counselling (10/2021) Code(s): F41.1 - Generalized anxiety disorder Plan: Continue with present medication (3) GERD (gastroesophageal reflux disease): Code(s): K21.9 - Gastro-esophageal reflux disease without esophagitis Plan: Avoid the foods that causes that usually spicy foods, tomato products, juices, coffee, soda and foods that your sensitive to. After eating do not lie down, allow 3-4 hours before in lie down. And keep the head of bed above 30 degrees to avoid the acid from going up. (4) Hypercholesterolemia: Code(s): E78.00 - Pure hypercholesterolemia, unspecified Plan: Avoid fried foods, chicken skin, eggs, butter margarine, pastries and meat. Be it pork or beef they have a lot of cholesterol LDL goal of less than 130 and triglyceride of less than 150 (5) Impaired glucose tolerance: Code(s): R73.02 - Impaired glucose tolerance (oral) Plan: Decrease the amount of carbohydrate intake, pasta, bread, rice and potatoes are all sugar and that is aside from all the sweet stuff, remember that fruits are good but they are Sweet also. (6) Polysubstance abuse: Code(s): F19.10 - Other psychoactive substance abuse, uncomplicated Plan: Continue with the methadone clinic. (7) Anemia: Code(s): D64.9 - Anemia, unspecified Plan: Continue to monitor (8) Hemorrhoid: Code(s): K64.9 - Unspecified hemorrhoids Orders: Orders Comprehensive Met. Panel Today D64.9 - Anemia, unspecified Ferritin Today D64.9 - Anemia, unspecified IRON PROFILE Today D64.9 - Anemia, unspecified Free T4 (Free Thyroxine) Today D64.9 - Anemia, unspecified Thyroid Stimulating Hormone Today D64.9 - Anemia, unspecified Vitamin B12 and Folate Today D64.9 - Anemia, unspecified Lipid Panel Today D64.9 - Anemia, unspecified, E78.00 - Pure hypercholesterolemia, unspecified Complete Blood Count Auto Diff Today D64.9 - Anemia, unspecified Reticulocyte Count Today D64.9 - Anemia, unspecified Hemoglobin A1c Today D64.9 - Anemia, unspecified Td State Immunization Today Z23 - Encounter for immunization Medications: New tetanus-diphtheria toxoids-Td 0.5 mL IM ONCE 0.5 mL 0RF Z23 - Encounter for immunization hydrocortisone 2.5% (Proctosol HC) 1 appl RI BID-QID PRN 30 grams 1RF hemorrhoids K64.9 - Unspecified hemorrhoids Coding Level of Care Code Est Pt Prev Care 40-64y(86751) Diagnoses Annual physical exam Z00.00 Generalized anxiety disorder F41.1 GERD (gastroesophageal reflux disease) K21.9 Hypercholesterolemia E78.00 Impaired glucose tolerance R73.02 Polysubstance abuse F19.10 Anemia D64.9 Hemorrhoid K64.9 Additional Codes UTE-7 Assessment Billing - UTE-7 Assessment Tool: UTE-7 Assessment [id number] ([id number])
== END 2023-11-25 11:08 | disposition home or self-care (01) ==
PROVIDERS: PCP Internal Medicine; Visit Provider Internal Medicine
DX: Z00.00 Encounter for general adult medical examination without abnormal findings (principal); F41.1 Generalized anxiety disorder; F19.10 Other psychoactive substance abuse, uncomplicated; Z23 Encounter for immunization; K21.9 Gastro-esophageal reflux disease without esophagitis; E78.00 Pure hypercholesterolemia, unspecified; R73.02 Impaired glucose tolerance (oral); D64.9 Anemia, unspecified; K64.9 Unspecified hemorrhoids
CPT/HCPCS: 90471; 90714; 99396

== ENCOUNTER 2023-12-23 10:35 | Outpatient (AMB) | payer OTHER, SELFPAY ==
--- NOTE | 2023-12-23 10:51 | A.OFFVIS_ITS ---
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 Patient says he has longstanding history of anxiety and panic disorder. And when he gets into a situation like that he feels his heart racing fast. The symptoms are episodic however he was noted in your office to have tachycardia noted to have sinus tachycardia. He had TSH done at that time which was within normal limits. He said he currently uses Klonopin 1st tachycardia. Denies use of excessive caffeine or energy drinks. Denies any use of cocaine or amphetamine like drugs. He is bothered by the symptoms of palpitations. Denies any lightheadedness, syncope. He said does not drink much fluid in the day. He denies any exertional chest pain no shortness of breath. No orthopnea, PND, leg edema. [facility] Medical History Diarrhea Hypercholesterolemia GERD (gastroesophageal reflux disease) Anxiety and depression Polysubstance abuse Surgical History No pertinent past surgical history Family History Father CVD (cardiovascular disease) Mother No problems noted. Paternal Grandmother Lung cancer Paternal Grandfather Cancer Maternal Uncle Dementia Other Substance use disorder Social History Housing: House Alcohol intake: never Patient Tobacco Use Status: Former Tobacco user Tobacco use type: Cigarette Years Smoked: marijuana e-Cigarette/Vaping Use: Never Used Second Hand Smoke Exposure: No service: No Current occupational status: employed Cognitive needs: No Hearing needs: No Vision needs: No Review of Systems Const Denies chills, Denies fatigue, Denies fever(s), Denies frequent falls, Denies weakness, Denies weight gain and Denies weight loss ENT Denies dizziness Card Denies chest pain, Denies leg edema, Denies lightheadedness, Denies palpitations, Denies dyspnea, Denies dyspnea on exertion, Denies orthopnea and Denies other (loss of consciousness) Resp Denies cough, Denies dyspnea and Denies dyspnea on exertion GI Denies hematochezia and Denies change in stool character Musc Denies abnormal gait, Denies muscle weakness, Denies numbness, Denies radiating pain into limb and Denies tingling Neuro Denies abnormal gait, Denies dizziness, Denies frequent falls, Denies numbness, Denies tingling and Denies weakness Endo Denies fatigue and Denies palpitations Physical Exam Vital Signs: Last Vital Signs Pulse 115 H 12/23/23 10:52 BP 120/78 12/23/23 10:52 BMI result Body Mass Index 25.1 Const General: cooperative, comfortable, alert, awake and anxious Nutritional Appearance: average body habitus Orientation/consciousness: patient oriented x3 Limitations: no limitations HEENT Head: Yes normocephalic and Yes atraumatic Neck Neck: Yes trachea midline, Yes supple and Yes no JVD Resp Effort & Inspection: normal respiratory effort Auscultation: clear to auscultation bilaterally Cardio Jugular venous distension: no JVD Palpation: normal PMI Rate: regular rate Rhythm: regular rhythm Heart sounds: S1 normal heart sound present, S2 normal heart sound present, no click, no gallops, no murmurs and no rubs GI Auscultation: normal bowel sounds Skin General skin exam: no rashes or lesions noted Neuro General: patient oriented x3 and no focal motor deficits Extrem General: Yes no clubbing, cyanosis or edema Psych Appearance: grossly normal Office Procedures EKG Details: EKG shows sinus tachycardia with nonspecific ST changes [id number], Complete Assessment & Plan Assessment & Plan (1) Sinus tachycardia: Code(s): R00.0 - Tachycardia, unspecified Category: Medical Plan: Sinus tachycardia in this middle-aged man most likely seems to be driven by anxiety/panic attack. However he is having symptoms of palpitation not tolerated in his tachycardia well. No other obvious symptoms of structural heart disease. However given his persistent sinus tachycardia will obtain echocardiogram to evaluate for tachycardia mediated cardiomyopathy. Also suggest a Holter monitor for 2 weeks because of intermittent symptoms of pa lpitation rule out any episodes of SVT and/or atrial fibrillation. Also obtain plasma metanephrine levels to rule out any secondary causes of sinus tachycardia. The no other obvious causes. General anxiety disorder needs to be treated. I have advised him to avoid stimulants such as caffeine and other energy drinks. Also advised to increase his fluid intake to about 60-70 oz a day and increase his salt intake as well. Mechanism of sinus tachycardia and relative hypovolemia was discussed with him. If no other obvious cause was found, should treat his anxiety disorder more aggressively and can consider using propranolol to treat his tachycardia. Will follow up in the clinic in 3 months time, sooner p.r.n.. Thank you for allowing me to partake in his care Orders: Orders Metanephrines, Plasma Today R00.0 - Tachycardia, unspecified CA echo transthoracic complete Today R00.0 - Tachycardia, unspecified ECG 14 day holter monitor Today R00.0 - Tachycardia, unspecified Coding Level of Care Code New Pt Level 4 (98638) Diagnoses Sinus tachycardia R00.0 CPT Codes EKG - CPT: 39611-[id number], Complete ([id number])
[2023-12-23 10:52] VITALS: BP 120/78; PULSE 115; BMI 25.1
== END 2023-12-23 11:21 | disposition home or self-care (01) ==
PROVIDERS: PCP Internal Medicine; Visit Provider Internal Medicine Cardiovascular Disease
DX: R00.0 Tachycardia, unspecified (principal)
CPT/HCPCS: 93010; 99204

== ENCOUNTER → 2023-12-23 10:35 | Outpatient (BNVA) | payer OTHER, SELFPAY | PROVIDERS: PCP Internal Medicine; Visit Provider Internal Medicine Cardiovascular Disease | DX: R00.0 Tachycardia, unspecified (principal) | CPT/HCPCS: 93005; 99202 ==

== ENCOUNTER → 2024-01-21 08:56 | Outpatient (REF) | payer OTHER, SELFPAY ==
--- NOTE | 2024-01-21 08:59 | HM_ITS ---
Conclusion: 1. Patient was monitored for total period of 11 days 2. Baseline was normal sinus rhythm with average heart of 76 beats per minute 3. No significant pauses or arrhythmias noted 4. Patient marked the counter 2 times without any reported symptoms correlating with sinus rhythm and sinus tachycardia MTDD
--- NOTE | 2024-01-21 08:59 | CA_ITS ---
Transthoracic Echocardiogram Patient (Last, First, Middle): Giancarlo Cruz, Gender: Male Date of : 1980 Age: 43 Procedure Date: 01/21/2024 Procedure Type: Transthoracic Echocardiogram Location: OP Height: 172.72 cm Weight: 74.84 kg BSA: 1.88 m2 Heart Rate: 125 bpm BP: 130 / 80 mmHg Paper Cutter Operator: SB Referring MD: Maximiliano Alonzo MD Symptoms: R00.0 - Tachycardia, unspecified Study Quality: Adequate ECG Rhythm: Tachycardia Conclusions: - The left ventricular systolic function is normal. The calculated ejection fraction is 64% by biplane method. - No obvious valvular pathology seen on this study. Findings Left Ventricle Normal left ventricular cavity size. There is normal left ventricular wall thickness. The left ventricular systolic function is normal. The calculated ejection fraction is 64% by biplane method. There is no evidence of regional wall motion abnormalities. Diastolic function is normal for age. Right Ventricle Normal right ventricular cavity size and systolic function. Atria Both atria are normal in size. Aortic Valve The aortic valve was not well visualized. There is no aortic valve stenosis. There is no aortic valve regurgitation. Mitral Valve The mitral valve appears normal. There is no mitral valve regurgitation. There is no mitral valve stenosis. Pulmonic Valve The pulmonic valve is likely normal. Tricuspid Valve There is no tricuspid valve regurgitation. Tricuspid regurgitation envelope is inadequate for calculation of right ventricular systolic pressure. Great Vessels The asc aorta is normal in size. Venous The inferior vena cava is normal in size and collapses greater than 50% with inspiration. Pericardium/Pleural There is no evidence of pericardial effusion. Prior Study Comparison No significant change compared to prior study dated: 09/23/2018. Recommendations, Care & Conclusions No obvious valvular pathology seen on this study. Measurements 2D Linear Measurements IVSd: 0.86 0.6-0.9/0.6-1.0 cm LVIDd: 4.59 3.9-5.3/4.2-5.9 cm LVIDd Index: 2.44 2.4-3.2/2.2-3.1 cm/m2 LVIDs: 3.13 2.0-3.6 cm LVPWd: 0.60 0.7-1.1 cm LA Diam: 3.00 2.7-3.8/3.0-4.0 cm LAIDs Index: 1.60 1.5-2.3 cm/m2 LV Mass: 129.16 67-162/88-224 g LV Mass Index: 68.70 43-95/49-115 g/m2 LVOT Diam: 2.20 3.0+(-)1.3 cm 2D Systolic Function EF 4C: 72.90 >55% EF 2C: 55.80 >55% EF BiP: 64.40 >55% Mitral Valve E'Lateral: 21.30 E'Medial: 9.32 Aortic Valve AoV Pk Nabeel: 1.28 AoV Pk Grad: 7.00 MONAE: 4.23 LVOT LVOT Pk Nabeel: 1.32 LVOT Mn Nabeel: 0.91 LVOT VTI: 0.19 LVOT Pk Grad: 7.00 LVOT Mn Grad: 4.00 LVOT Diam: 2.20 LVOT Area: 3.80 Diastolic Function E'Medial: 9.32 E' Laterial: 21.30 Right Ventricle TAPSE (mm): 26.90 TVS' Nabeel: 19.40 Tricuspid Valve RA Press: 3.00 Great Vessels Aorta Sinus of Valsalva: 3.40 2.0-3.5 cm Ao Asc: 2.90 2.1-3.4 cm Pulmonary Valve PV Pk Nabeel: 1.08 Peak PV Grad: 5.00 Updated in Other Vendor System with Status of Final Jake Monet MD electronically signed on 01/25/2024 10:43:34 AM with status of Final
== END ==
LOC: HO.CARD 08:56
PROVIDERS: PCP Internal Medicine; Visit Provider Internal Medicine Cardiovascular Disease
DX: R00.0 Tachycardia, unspecified (principal)
CPT/HCPCS: 93246; 93306

== ENCOUNTER → 2024-01-21 08:59 | Outpatient (BNV) | payer OTHER, SELFPAY | PROVIDERS: PCP Internal Medicine; Visit Provider Internal Medicine | DX: R00.0 Tachycardia, unspecified (principal) | CPT/HCPCS: 93248; 93306 ==

== ENCOUNTER 2024-01-28 09:18 | Outpatient (AMB) | payer OTHER, SELFPAY ==
[2024-01-28 09:31] VITALS: BP 128/76; PULSE 114; O2SAT 98; BMI 25.1
--- NOTE | 2024-01-28 09:31 | A.OFFPC_ITS ---
Vital Signs 01/28/24 09:31 Height 5 ft 9 in Weight 170 lb BMI 25.1 BP 128/76 Blood Pressure Location Lt brachial Position Sitting Pulse 114 H Pulse Source Pulse Oximeter Pulse Oximetry (%) 98 Oxygen Delivery Method Room Air Intake Visit Reasons: UTE, Tachycardia Allergies No Known Allergies Allergy (Verified 01/28/24 09:31) Tobacco use date assessed: 01/28/24 Dental Screening Dental Screen Date: 11/25/23 HPI UTE, Tachycardia HPI Details 43-year-old male with history of general ized anxiety disorder GERD hypercholesterolemia impaired glucose tolerance history of polysubstance abuse in anemia last seen in November 2022. Patient had echocardiogram in January 24 The left ventricular systolic function is normal. The calculated ejection fraction is 64% by biplane method. - No obvious valvular pathology seen on this study. Patient was complaining of palpitations. Also recommended Holter monitor if no other obvious cause, anxiety problem is the concern. holter presently. [facility] Medical History Diarrhea Hypercholesterolemia GERD (gastroesophageal reflux disease) Anxiety and depression Polysubstance abuse Surgical History No pertinent past surgical history Family History Father CVD (cardiovascular disease) Mother No problems noted. Paternal Grandmother Lung cancer Paternal Grandfather Cancer Maternal Uncle Dementia Other Substance use disorder Social History Housing: House Alcohol intake: never Patient Tobacco Use Status: Former Tobacco user Tobacco use type: Cigarette Years Smoked: marijuana e-Cigarette/Vaping Use: Never Used Second Hand Smoke Exposure: No service: No Current occupational status: employed Cognitive needs: No Hearing needs: No Vision needs: No Questionnaire PHQ-9 Over the last 2 weeks, how often have you been bothered by any of the following problems? 1. Little interest or pleasure in doing things: not at all 2. Feeling down, depressed, or hopeless: not at all 3. Trouble falling or staying asleep, or sleeping too much: not at all 4. Feeling tired or having little energy: not at all 5. Poor appetite or overeating: not at all 6. Feeling bad about yourself - or that you are a failure or have let yourself or your family down: not at all 7. Trouble concentrating on things, such as reading the newspaper or watching television: not at all 8. Moving or speaking so slowly that other people could have noticed. Or the opposite - being so fidgety or restless that you have been moving around a lot more than usual: not at all 9. Thoughts that you would be better off or of hurting yourself in some way: not at all Total score: 0 Depression Screening Interpretation: Negative Depression Screening Done: Yes Source: Developed by Drs. Ferny Mina, Ella Mccabe, Ubaldo Horn and colleagues, with an educational madeleine from [employer]. Thrive Questionnaire Date Thrive assessed: 11/25/23 AUDIT C Alcohol Use Questionnaire (AUDIT-C) 1. How often do you have a drink containing alcohol?: Never 2. How many drinks containing alcohol do you have on a typical day when you are drinking?: 1 or 2 (0) 3. How often do you have six or more drinks on one occasion?: Never Total Score: 0 UTE-7 AMB Questionnaire UTE-7 Date UTE - 7 assessed: 11/25/23 Source: Developed by Drs. Ferny Mina, Ella Mccabe, Ubaldo Horn and colleagues, with an educational madeleine from [employer]. Physical exam (Primary Care) Vital Signs: Last Vital Signs Pulse 114 H 01/28/24 09:31 BP 128/76 01/28/24 09:31 Pulse Ox 98 01/28/24 09:31 Oxygen Delivery Method Room Air 01/28/24 09:31 BMI result Body Mass Index 25.1 Tobacco/Smoking Status: Tobacco use Status Tobacco use date assessed 01/28/24 01/28/24 09:37 Patient Tobacco Use Status Former Tobacco user 01/28/24 09:37 Tobacco use type Cigarette 01/28/24 09:37 e-Cigarette/Vaping Use Never Used 01/28/24 09:37 PHQ-9: PHQ-9 Score PHQ-9: Total score 0 01/28/24 09:37 Depression Screening Interpretation: Negative Thrive Assessment: Date of Thrive Assessment Date Thrive assessed 11/25/23 01/28/24 09:37 Const General: alert; No acute distress Eyes Conjunctivae: conjunctivae normal Resp Auscultation: clear to auscultation bilaterally Cardio Rate: regular rate Rhythm: regular rhythm GI Inspection: Yes normal to inspection Extrem General: Yes normal to inspection and No edema Coding Level of Care Code Est Pt Level 4 (14549) Diagnoses Sinus tachycardia R00.0 Generalized anxiety disorder F41.1 Polysubstance abuse F19.10 Hypercholesterolemia E78.00 GERD (gastroesophageal reflux disease) K21.9 Assessment & Plan Assessment & Plan (1) Sinus tachycardia: Code(s): R00.0 - Tachycardia, unspecified Category: Medical Plan: Patient was seen by Cardiology had an echocardiogram done with normal results. Holter pending (2) Generalized anxiety disorder: Comment: Panic attacks declined counseling January 2021, [facility] counselling (10/2021) Code(s): F41.1 - Generalized anxiety disorder Category: Medical Plan: Presently on clonazepam discussed about treatment. Has had counseling before. Has open for counseling again and discussed about starting on anxiety medication once the Holter proves negative. (3) Polysubstance abuse: Code(s): F19.10 - Other psychoactive substance abuse, uncomplicated Category: Medical Plan: Patient on methadone (4) Hypercholesterolemia: Code(s): E78.00 - Pure hypercholesterolemia, unspecified Category: Medical Plan: Avoid fried foods, chicken skin, eggs, butter margarine, pastries and meat. Be it pork or beef they have a lot of cholesterol LDL goal of less than 130 and triglyceride of less than 150 (5) GERD (gastroesophageal reflux disease): Code(s): K21.9 - Gastro-esophageal reflux disease without esophagitis Category: Medical Plan: Avoid the foods that causes that usually spicy foods, tomato products, juices, coffee, soda and foods that your sensitive to. After eating do not lie down, allow 3-4 hours before in lie down. And keep the head of bed above 30 degrees to avoid the acid from going up. Orders: Referrals Psychiatry Referral F41.1 - Generalized anxiety disorder
== END 2024-01-28 10:02 | disposition home or self-care (01) ==
LOC: HO.HMCH 09:18
PROVIDERS: PCP Internal Medicine; Visit Provider Internal Medicine
DX: R00.0 Tachycardia, unspecified (principal); F41.1 Generalized anxiety disorder; F19.10 Other psychoactive substance abuse, uncomplicated; E78.00 Pure hypercholesterolemia, unspecified; K21.9 Gastro-esophageal reflux disease without esophagitis

== ENCOUNTER → 2024-01-28 09:18 | Outpatient (BNVA) | payer OTHER, SELFPAY | PROVIDERS: PCP Internal Medicine; Visit Provider Internal Medicine | DX: R00.0 Tachycardia, unspecified (principal); F41.1 Generalized anxiety disorder; F19.10 Other psychoactive substance abuse, uncomplicated; E78.00 Pure hypercholesterolemia, unspecified; K21.9 Gastro-esophageal reflux disease without esophagitis | CPT/HCPCS: 96127; 99212 ==

== ENCOUNTER 2024-03-11 10:38 | Outpatient (AMB) | payer OTHER, SELFPAY ==
--- NOTE | 2024-03-11 10:49 | MHC.PC.OV ---
Vital Signs 03/11/24 10:50 Height 5 ft 9 in Weight 170 lb BMI 25.1 BP 112/88 Blood Pressure Location Lt brachial Position Sitting Pulse 126 H Pulse Source Pulse Oximeter Pulse Oximetry (%) 96 Oxygen Delivery Method Room Air Intake Visit Reasons: UTE Intake Note: Patient here for a follow up UTE Labor Relations Analyst Required: No Accompanied by: Self / Same As Patient Allergies No Known Allergies Allergy (Verified 03/11/24 10:51) Tobacco use date assessed: 01/28/24 Dental Screening Dental Screen Date: 03/11/24 Did you have a dental visit in the last 12 months?: No Did you have a dental problem in the last 6 months where you did not have access to dental care?: No Was dental information given to patient?: Patient has dentist HPI UTE HPI Details The patient is a 43-year-old male presenting with a history of paroxysmal tachycardia noted during previous medical evaluations. The patient recently completed a 14-day heart monitoring session, though he has not yet reviewed the results. Previously, his EKG was reported to be normal despite his self-reported condition of elevated heart rate reaching approximately 120 bpm, especially during clinical visits due to anxiety around healthcare settings. This occurs in conjunction with a self-expressed aversion to medical environments that contributes to increased anxiety and heart rate during visits. Additionally, the patient has a history of mild anemia identified during blood work conducted in May 2023. His cholesterol levels have been noted as elevated, and he is attempting dietary modifications to manage this condition. The patient's weight has remained stable since his last evaluation. Immunization history shows that he mistakenly received the influenza vaccine twice in a recent period and is up to date with the tetanus vaccination. [facility] Medical History Diarrhea Hypercholesterolemia GERD (gastroesophageal reflux disease) Anxiety and depression Polysubstance abuse Surgical History No pertinent past surgical history Family History Father CVD (cardiovascular disease) Mother No problems noted. Paternal Grandmother Lung cancer Paternal Grandfather Cancer Maternal Uncle Dementia Other Substance use disorder Social History Housing: House Alcohol intake: never Patient Tobacco Use Status: Former Tobacco user Tobacco use type: Cigarette Years Smoked: marijuana e-Cigarette/Vaping Use: Never Used Second Hand Smoke Exposure: No service: No Current occupational status: unemployed Cognitive needs: No Hearing needs: No Vision needs: No Questionnaire Thrive Questionnaire Date Thrive assessed: 11/25/23 UTE-7 AMB Questionnaire UTE-7 Date UTE - 7 assessed: 11/25/23 Source: Developed by Drs. Ferny Mina, Ella Mccabe, Ubaldo Horn and colleagues, with an educational madeleine from [employer]. Physical exam (Primary Care) Vital Signs: Last Vital Signs Pulse 126 H 03/11/24 10:50 BP 112/88 03/11/24 10:50 Pulse Ox 96 03/11/24 10:50 Oxygen Delivery Method Room Air 03/11/24 10:50 BMI result Body Mass Index 25.1 Tobacco/Smoking Status: Tobacco use Status Tobacco use date assessed 01/28/24 03/11/24 10:55 Patient Tobacco Use Status Former Tobacco user 03/11/24 10:55 Tobacco use type Cigarette 03/11/24 10:55 e-Cigarette/Vaping Use Never Used 03/11/24 10:55 Thrive Assessment: Date of Thrive Assessment Date Thrive assessed 11/25/23 03/11/24 10:55 Const General: alert; No acute distress Eyes Conjunctivae: conjunctivae normal Resp Auscultation: clear to auscultation bilaterally Cardio Rate: regular rate Rhythm: regular rhythm GI Inspection: Yes normal to inspection Extrem General: Yes normal to inspection and No edema Coding Level of Care Code Est Pt Level 4 (27834) Diagnoses Generalized anxiety disorder F41.1 Impaired glucose tolerance R73.02 Hypercholesterolemia E78.00 GERD (gastroesophageal reflux disease) K21.9 White coat syndrome with hypertension I10 Assessment & Plan Assessment & Plan (1) Generalized anxiety disorder: Comment: Panic attacks declined counseling January 2021, [facility] counselling (10/2021) Code(s): F41.1 - Generalized anxiety disorder Category: Medical (2) Impaired glucose tolerance: Code(s): R73.02 - Impaired glucose tolerance (oral) Category: Medical (3) Hypercholesterolemia: Code(s): E78.00 - Pure hypercholesterolemia, unspecified Category: Medical (4) GERD (gastroesophageal reflux disease): Code(s): K21.9 - Gastro-esophageal reflux disease without esophagitis Category: Medical (5) White coat syndrome with hypertension: Code(s): I10 - Essential (primary) hypertension Category: Medical Plan - Review the results of the recent heart monitor to assess any ongoing cardiac irregularities and confirm the diagnosis of paroxysmal tachycardia. - Advise dietary modifications and lifestyle changes to manage elevated cholesterol levels, monitoring future lipid panels. - Continue to monitor anemia status with follow-up blood work if indicated, evaluating potential dietary or supplemental interventions. - Reassure patient regarding the importance of continued cardiovascular monitoring and provide interventions to manage anxiety during medical visits. - Reinforce the necessity to stay up to date with immunizations, cautioning on the logistical aspects to avoid redundant vaccination. - Plan a follow-up visit in three months to reassess his cardiovascular status and discuss further health maintenance.
[2024-03-11 10:50] VITALS: BP 112/88; PULSE 126; O2SAT 96; BMI 25.1
== END 2024-03-11 11:41 | disposition home or self-care (01) ==
PROVIDERS: PCP Internal Medicine; Visit Provider Internal Medicine
DX: F41.1 Generalized anxiety disorder (principal); R73.02 Impaired glucose tolerance (oral); E78.00 Pure hypercholesterolemia, unspecified; K21.9 Gastro-esophageal reflux disease without esophagitis; I10 Essential (primary) hypertension

== ENCOUNTER → 2024-03-11 10:38 | Outpatient (BNVA) | payer OTHER, SELFPAY | PROVIDERS: PCP Internal Medicine; Visit Provider Internal Medicine | DX: K21.9 Gastro-esophageal reflux disease without esophagitis (principal); I47.9 Paroxysmal tachycardia, unspecified; F41.1 Generalized anxiety disorder; R73.02 Impaired glucose tolerance (oral); E78.00 Pure hypercholesterolemia, unspecified; I10 Essential (primary) hypertension | CPT/HCPCS: 99212 ==

== ENCOUNTER 2024-06-22 14:22 | Outpatient (AMB) | payer OTHER, SELFPAY ==
--- NOTE | 2024-06-22 14:23 | MHC.OFFVIS ---
Vital Signs 06/22/24 14:25 Height 5 ft 9 in Weight 165 lb 5.547 oz BMI 24.4 BP 118/78 Blood Pressure Location Lt brachial Position Sitting Pulse 126 H Intake Visit Reasons: r/s 04/20/24 3 mos followu holter/echo Intake Note: 3 month follow-up with holter and echo results Athletic Director Required: No Allergies No Known Allergies Allergy (Verified 03/11/24 10:51) Medication List - Last Reconciled 06/22/24 by Maximiliano Alonzo MD clonazepam 0.5 mg PO BID 30 days hydrocortisone 2.5% (Proctosol HC) 1 appl OH BID-QID PRN ketoconazole 2% 1 appl topical BID methadone 50 mg PO DAILY HPI Comments Details: Giancarlo comes for follow-up of his tests results. His Holter monitor when he and was wearing it showed actually average heart rate of 75 beats per minute. No significant tachycardia or arrhythmias. Echocardiogram showed normal LV systolic function. Reviewed the last multiple office visits with you has shown significantly elevated heart rate with heart rate 110-130 beats per minute. He comes in today also very anxious and said he got lost and came running up to the office. Was noted to be tachycardic and EKG confirms sinus tachycardia with nonspecific ST T wave changes. Denies any exertional chest pain or shortness of breath but says that he is very anxious, for unclear reasons. He said every time in the doctor's office his heart rate is elevated. [facility] Medical History Diarrhea Hypercholesterolemia GERD (gastroesophageal reflux disease) Anxiety and depression Polysubstance abuse Surgical History No pertinent past surgical history Family History Father CVD (cardiovascular disease) Mother No problems noted. Paternal Grandmother Lung cancer Paternal Grandfather Cancer Maternal Uncle Dementia Other Substance use disorder Social History Housing: House Alcohol intake: never Patient Tobacco Use Status: Former Tobacco user Tobacco use type: Cigarette Years Smoked: marijuana e-Cigarette/Vaping Use: Never Used Second Hand Smoke Exposure: No service: No Current occupational status: unemployed Cognitive needs: No Hearing needs: No Vision needs: No Review of Systems Const Denies chills, Denies fatigue, Denies fever(s), Denies frequent falls, Denies weakness, Denies weight gain and Denies weight loss ENT Denies dizziness Card Denies chest pain, Denies leg edema, Denies lightheadedness, Denies palpitations, Denies dyspnea, Denies dyspnea on exertion, Denies orthopnea and Denies other (loss of consciousness) Resp Denies cough, Denies dyspnea and Denies dyspnea on exertion GI Denies hematochezia and Denies change in stool character Musc Denies abnormal gait, Denies muscle weakness, Denies numbness, Denies radiating pain into limb and Denies tingling Neuro Denies abnormal gait, Denies dizziness, Denies frequent falls, Denies numbness, Denies tingling and Denies weakness Endo Denies fatigue and Denies palpitations Physical Exam Vital Signs: Last Vital Signs Pulse 126 H 06/22/24 14:25 BP 118/78 06/22/24 14:25 BMI result Body Mass Index 24.4 Const General: cooperative, comfortable, alert, awake and anxious Nutritional Appearance: average body habitus Orientation/consciousness: patient oriented x3 Limitations: no limitations HEENT Head: Yes normocephalic and Yes atraumatic Neck Neck: Yes trachea midline, Yes supple and Yes no JVD Resp Effort & Inspection: normal respiratory effort Auscultation: clear to auscultation bilaterally Cardio Jugular venous distension: no JVD Palpation: normal PMI Rate: tachycardic Rhythm: regular rhythm Heart sounds: S1 normal heart sound present, S2 normal heart sound present, no click, no gallops, no murmurs and no rubs GI Auscultation: normal bowel sounds Skin General skin exam: no rashes or lesions noted Neuro General: patient oriented x3 and no focal motor deficits Extrem General: Yes no clubbing, cyanosis or edema Psych Appearance: grossly normal Office Procedures EKG Details: EKG shows normal sinus rhythm with nonspecific ST T wave changes diffusely [id number], Complete Assessment & Plan Assessment & Plan (1) Sinus tachycardia: Code(s): R00.0 - Tachycardia, unspecified Category: Medical Plan: Sinus tachycardia predominantly noted only when he has physician visits which are most likely driven by anxiety/panic. Patient's Holter monitor did not show any significant tachycardia. Echocardiogram shows normal LV ejection fraction. At this point time treatment should be directed towards anxiety and panic attack management rather than treating sinus tachycardia although if this remains in recurrent problem can he was nonselective beta-rickey such as propranolol to treat the same. Avoidance of stimulants was discussed. Avoidance of drug abuse was discussed. No further workup is indicated. Will follow up in the clinic if need be. Thank you for allowing me to partake in his care Coding Level of Care Code Est Pt Level 3 (14247) Complex EM visit Add On G2211 Diagnoses Sinus tachycardia R00.0 CPT Codes EKG - CPT: 56575-[id number], Complete ([id number])
[2024-06-22 14:25] VITALS: BP 118/78; PULSE 126; BMI 24.4
== END 2024-06-22 14:42 | disposition home or self-care (01) ==
LOC: HO.HCS 14:22
PROVIDERS: PCP Internal Medicine; Visit Provider Internal Medicine Cardiovascular Disease
DX: R00.0 Tachycardia, unspecified (principal)
CPT/HCPCS: 99213; G2211

== ENCOUNTER → 2024-06-22 14:22 | Outpatient (BNVA) | payer OTHER, SELFPAY | PROVIDERS: PCP Internal Medicine; Visit Provider Internal Medicine Cardiovascular Disease | DX: R00.0 Tachycardia, unspecified (principal) | CPT/HCPCS: 93005; 99212 ==

== ENCOUNTER 2024-06-23 10:57 | Outpatient (AMB) | payer OTHER, SELFPAY ==
--- NOTE | 2024-06-23 11:23 | MHC.PC.OV ---
Vital Signs 06/23/24 11:25 Height 5 ft 9 in Weight 167 lb 6 oz BMI 24.7 BP 140/72 H Blood Pressure Location Lt brachial Position Sitting Pulse 106 H Pulse Source Pulse Oximeter Temp 98.0 F Temp Source Temporal Artery Scan Pulse Oximetry (%) 98 Oxygen Delivery Method Room Air Intake Visit Reasons: UTE, white coat htn Intake Note: Patient is here to follow up on UTE, White coat HTN. 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: Not Required per policy Accompanied by: Self / Same As Patient Allergies No Known Allergies Allergy (Verified 06/23/24 11:24) Medication List - Last Reconciled 06/23/24 by Hiren Christian MD bupropion HCl XL (Wellbutrin XL) 150 mg PO QAM clonazepam 0.5 mg PO BID 30 days hydrocortisone 2.5% (Proctosol HC) 1 appl DC BID-QID PRN ketoconazole 2% 1 appl topical BID methadone 50 mg PO DAILY Tobacco use date assessed: 06/23/24 Dental Screening Dental Screen Date: 06/23/24 Did you have a dental visit in the last 12 months?: No Did you have a dental problem in the last 6 months where you did not have access to dental care?: No Was dental information given to patient?: No PFSH Medical History Diarrhea Hypercholesterolemia GERD (gastroesophageal reflux disease) Anxiety and depression Polysubstance abuse Surgical History No pertinent past surgical history Family History Father CVD (cardiovascular disease) Mother No problems noted. Paternal Grandmother Lung cancer Paternal Grandfather Cancer Maternal Uncle Dementia Other Substance use disorder Social History Housing: House Alcohol intake: never Patient Tobacco Use Status: Former Tobacco user Tobacco use type: Cigarette Years Smoked: marijuana e-Cigarette/Vaping Use: Never Used Second Hand Smoke Exposure: Yes service: No Current occupational status: unemployed Cognitive needs: No Hearing needs: No Vision needs: No Questionnaire PHQ-9 Over the last 2 weeks, how often have you been bothered by any of the following problems? 1. Little interest or pleasure in doing things: not at all 2. Feeling down, depressed, or hopeless: not at all 3. Trouble falling or staying asleep, or sleeping too much: not at all 4. Feeling tired or having little energy: not at all 5. Poor appetite or overeating: not at all 6. Feeling bad about yourself - or that you are a failure or have let yourself or your family down: not at all 7. Trouble concentrating on things, such as reading the newspaper or watching television: not at all 8. Moving or speaking so slowly that other people could have noticed. Or the opposite - being so fidgety or restless that you have been moving around a lot more than usual: not at all 9. Thoughts that you would be better off or of hurting yourself in some way: not at all Total score: 0 Depression Screening Interpretation: Negative Depression Screening Done: Yes Source: Developed by Drs. Ferny Mina, Ella Mccabe, Ubaldo Horn and colleagues, with an educational madeleine from [employer]. Thrive Questionnaire Date Thrive assessed: 06/23/24 I am a: Patient What is your living situation today?: I have a steady place to live Within the past 12 months, did the food you bought not last and you didn't have the money to get more?: Never true Within the past 12 months, did you worry whether your food would run out before you got money to buy more?: Never true Do you have trouble paying for medicines?: No Do you have trouble getting transportation to medical appointments?: No Do you have trouble paying your heating and electricity bill?: No Do you have trouble taking care of your child, family member or friend?: No Do you have trouble with day-to-day activities such as bathing, preparing meals, shopping, managing finances, etc.?: No Are you currently unemployed and looking for a job?: No Are you interested in more education?: No Please select the resources that you would like help with: None Currently or been in a relationship where the following occur: No concerns reported THRIVE Score: 0 AUDIT C Alcohol Use Questionnaire (AUDIT-C) 1. How often do you have a drink containing alcohol?: Never Total Score: 0 UTE-7 AMB Questionnaire UTE-7 Date UTE - 7 assessed: 06/23/24 Feeling nervous, anxious, or on edge: 3 = Nearly every day Not being able to stop or control worryin = Nearly every day Worrying too much about different things: 3 = Nearly every day Trouble relaxin = Not at all Being so restless that it is hard to sit still: 3 = Nearly every day Becoming easily annoyed or irritable: 0 = Not at all Feeling afraid as if something awful might happen: 1 = Several days Total UTE-7 score (0-4 normal; 5-9 mild; 10-14 moderate; 15-21 severe): 13 Source: Developed by Drs. Ferny Mina, Ella Mccabe, Ubaldo Horn and colleagues, with an educational madeleine from [employer]. Physical exam (Primary Care) Vital Signs: Last Vital Signs Temp 98.0 F 06/23/24 11:25 Pulse 106 H 06/23/24 11:25 BP 140/72 H 06/23/24 11:25 Pulse Ox 98 06/23/24 11:25 Oxygen Delivery Method Room Air 06/23/24 11:25 BMI result Body Mass Index 24.7 Tobacco/Smoking Status: Tobacco use Status Tobacco use date assessed 06/23/24 06/23/24 11:52 Patient Tobacco Use Status Former Tobacco user 06/23/24 11:52 Tobacco use type Cigarette 06/23/24 11:52 e-Cigarette/Vaping Use Never Used 06/23/24 11:52 PHQ-9: PHQ-9 Score PHQ-9: Total score 0 06/23/24 12:06 Depression Screening Interpretation: Negative Thrive Assessment: Date of Thrive Assessment Date Thrive assessed 06/23/24 06/23/24 11:52 Currently or been in a relationship where the following occur: No concerns reported Const General: alert; No acute distress Eyes Conjunctivae: conjunctivae normal Resp Auscultation: clear to auscultation bilaterally Cardio Rate: regular rate Rhythm: regular rhythm GI Inspection: Yes normal to inspection Extrem General: Yes normal to inspection and No edema Coding Level of Care Code Est Pt Level 4 (50112) Diagnoses White coat syndrome with hypertension I10 Generalized anxiety disorder F41.1 GERD (gastroesophageal reflux disease) K21.9 Marijuana smoker F12.90 Assessment & Plan Assessment & Plan (1) White coat syndrome with hypertension: Code(s): I10 - Essential (primary) hypertension Category: Medical Plan: Patient had a workup from Cardiology and this is brought about by anxiety (2) Generalized anxiety disorder: Comment: Panic attacks declined counseling January 2021, [facility] counselling (10/2021) Code(s): F41.1 - Generalized anxiety disorder Category: Medical Plan: Discussed with the patient about treatment for anxiety to help with the tachycardia (3) GERD (gastroesophageal reflux disease): Code(s): K21.9 - Gastro-esophageal reflux disease without esophagitis Category: Medical Plan: Avoid the foods that causes that usually spicy foods, tomato products, juices, coffee, soda and foods that your sensitive to. After eating do not lie down, allow 3-4 hours before in lie down. And keep the head of bed above 30 degrees to avoid the acid from going up. (4) Marijuana smoker: Code(s): F12.90 - Cannabis use, unspecified, uncomplicated Category: Medical Plan: advise to not smoke Plan History of Present Illness The patient is a 43-year-old male presenting for a follow-up regarding Generalized Anxiety Disorder. Approximately one month ago, he underwent a cardiology assessment prompted by episodes of tachycardia, which correlated with his anxiety disorder. The cardiac evaluation returned normal results, reassuring no intrinsic heart issues. He has been on clonazepam to manage his anxiety symptoms but is aware of the medication's addictive potential and seeks to explore alternative therapies. We discussed the introduction of Wellbutrin to his treatment regimen, considering its efficacy in treating anxiety. His lifestyle choices include reduced marijuana use, acknowledging its role in exacerbating his anxiety symptoms. He prefers using edibles while attempting to minimize smoking due to its respiratory impact. Three months prior, he contracted COVID-19, which postponed his cardiac follow-up. The current priority is to manage his anxiety more effectively to alleviate symptoms such as tachycardia. Health Maintenance - Discussed the benefits and potential addiction issues of current medication (clonazepam). - Advice on lifestyle modification with reduced marijuana smoking due to cardiovascular and anxiety implications. Social History - Current marijuana use noted, with an expressed preference for edibles over smoking due to anxiety exacerbation. - Recent COVID-19 infection, resolved, which affected his cardiovascular follow-up schedule. Review of Systems - Psychiatric: Reports anxiety with symptoms of tachycardia. Physical Exam Results - Cardiology workup: Normal findings indicating no cardiac pathology. Plan The treatment plan involves prescribing Wellbutrin to manage the patient's anxiety symptoms, with the aim of reducing his reliance on clonazepam due to potential dependency. Emphasis was placed on cessation of smoking marijuana, with a suggestion to continue using edibles, to alleviate anxiety-related tachycardia and protect respiratory health. The normal cardiac evaluation results were discussed, providing reassurance regarding his heart health. The patient understands and agrees to this approach, with the intention of closely monitoring the impact of these changes on his symptoms and quality of life. Patient was informed and verbally consented to the use of an ambient scribe for clinic note documentation during this visit. Discussion Notes During the consultation, the potential linkage between his anxiety and the tachycardia was explored. After confirming the results of his normal cardiology assessment, I suggested transitioning the patient's medication strategy from clonazepam to Wellbutrin, a less addictive anxiolytic option. I explained the possible sedative effects of Wellbutrin and advised starting with nighttime dosing, adjusting as experienced. Additionally, I emphasized the importance of reducing his marijuana smoking due to its exacerbating effects on anxiety and possible cardiovascular risks. The patient was counseled on the importance of non-smoking methods for marijuana consumption. We also discussed possible delayed onset of Wellbutrin's efficacy, advising patience during initial treatment weeks. Follow-up will focus on assessing the patient's response to Wellbutrin and continued exploration of suitable lifestyle modifications. The patient verbalized understanding and was amenable to the outlined management strategies. Patient Instructions - Start Wellbutrin as prescribed, one tablet at night. Adjust timing if it causes sleep issues. - Continue to minimize smoking, use edibles instead, and carefully monitor anxiety symptoms. - Follow up as needed to assess the effectiveness of the new medication and modify the plan if necessary. - Remain vigilant for any side effects or significant changes in symptoms and report them promptly. Medications: New bupropion HCl XL (Wellbutrin XL) 150 mg PO QAM 30 tabs 3RF F41.1 - Generalized anxiety disorder
[2024-06-23 11:25] VITALS: BP 140/72; PULSE 106; TEMP 36.7; O2SAT 98; BMI 24.7
== END 2024-06-23 12:09 | disposition home or self-care (01) ==
LOC: HO.HMCH 10:57
PROVIDERS: PCP Internal Medicine; Visit Provider Internal Medicine
DX: I10 Essential (primary) hypertension (principal); F41.1 Generalized anxiety disorder; K21.9 Gastro-esophageal reflux disease without esophagitis; F12.90 Cannabis use, unspecified, uncomplicated

== ENCOUNTER → 2024-06-23 10:57 | Outpatient (BNVA) | payer OTHER, SELFPAY | PROVIDERS: PCP Internal Medicine; Visit Provider Internal Medicine | DX: I10 Essential (primary) hypertension (principal); F41.1 Generalized anxiety disorder; K21.9 Gastro-esophageal reflux disease without esophagitis; F12.90 Cannabis use, unspecified, uncomplicated | CPT/HCPCS: 99212 ==

== ENCOUNTER 2024-12-01 11:18 | Outpatient (AMB) | payer OTHER, SELFPAY ==
[2024-12-01 11:21] VITALS: BP 128/72; PULSE 138; TEMP 36.1; O2SAT 97; BMI 25.4
--- NOTE | 2024-12-01 11:21 | MHC.PC.OV ---
Vital Signs 12/01/24 11:21 Height 5 ft 9 in Weight 172 lb BMI 25.4 BP 128/72 Blood Pressure Location Lt brachial Position Sitting Pulse 138 H Pulse Source Pulse Oximeter Temp 97.0 F Temp Source Temporal Artery Scan Pulse Oximetry (%) 97 Oxygen Delivery Method Room Air Intake Visit Reasons: Annual Exam Allergies No Known Allergies Allergy (Verified 12/01/24 11:21) Medication List - Last Reconciled 12/01/24 by Hiren Christian MD bupropion HCl XL (Wellbutrin XL) 150 mg PO QAM clonazepam 0.5 mg PO BID 30 days hydrocortisone 2.5% (Proctosol HC) 1 appl [place] BID-QID PRN ketoconazole 2% 1 appl topical BID methadone 50 mg PO DAILY Tobacco use date assessed: 12/01/24 Dental Screening Dental Screen Date: 06/23/24 Did you have a dental visit in the last 12 months?: No Did you have a dental problem in the last 6 months where you did not have access to dental care?: No Was dental information given to patient?: No [facility] Medical History Diarrhea Hypercholesterolemia GERD (gastroesophageal reflux disease) Anxiety and depression Polysubstance abuse Surgical History No pertinent past surgical history Family History Father CVD (cardiovascular disease) Mother No problems noted. Paternal Grandmother Lung cancer Paternal Grandfather Cancer Maternal Uncle Dementia Other Substance use disorder Social History Housing: House Alcohol intake: never Patient Tobacco Use Status: Former Tobacco user Tobacco use type: Cigarette Years Smoked: marijuana e-Cigarette/Vaping Use: Never Used Second Hand Smoke Exposure: Yes service: No Current occupational status: unemployed Cognitive needs: No Hearing needs: No Vision needs: No Questionnaire PHQ-9 Over the last 2 weeks, how often have you been bothered by any of the following problems? 1. Little interest or pleasure in doing things: not at all 2. Feeling down, depressed, or hopeless: not at all 3. Trouble falling or staying asleep, or sleeping too much: not at all 4. Feeling tired or having little energy: not at all 5. Poor appetite or overeating: not at all 6. Feeling bad about yourself - or that you are a failure or have let yourself or your family down: not at all 7. Trouble concentrating on things, such as reading the newspaper or watching television: not at all 8. Moving or speaking so slowly that other people could have noticed. Or the opposite - being so fidgety or restless that you have been moving around a lot more than usual: not at all 9. Thoughts that you would be better off or of hurting yourself in some way: not at all Total score: 0 Source: Developed by Drs. Ferny Mina, Ella Mccabe, Ubaldo Horn and colleagues, with an educational madeleine from [email or web address]. Thrive Questionnaire Date Thrive assessed: 06/23/24 I am a: Patient What is your living situation today?: I have a steady place to live Within the past 12 months, did the food you bought not last and you didn't have the money to get more?: Never true Within the past 12 months, did you worry whether your food would run out before you got money to buy more?: Never true Do you have trouble paying for medicines?: No Do you have trouble getting transportation to medical appointments?: No Do you have trouble paying your heating and electricity bill?: No Do you have trouble taking care of your child, family member or friend?: No Do you have trouble with day-to-day activities such as bathing, preparing meals, shopping, managing finances, etc.?: No Are you currently unemployed and looking for a job?: Yes Are you interested in more education?: No Please select the resources that you would like help with: None Currently or been in a relationship where the following occur: No concerns reported THRIVE Score: 0 AUDIT C Alcohol Use Questionnaire (AUDIT-C) 1. How often do you have a drink containing alcohol?: Never 3. How often do you have six or more drinks on one occasion?: Never Total Score: 0 UTE-7 AMB Questionnaire UTE-7 Date UTE - 7 assessed: 06/23/24 Feeling nervous, anxious, or on edge: 1 = Several days Not being able to stop or control worryin = Several days Worrying too much about different things: 1 = Several days Trouble relaxin = Several days Being so restless that it is hard to sit still: 1 = Several days Becoming easily annoyed or irritable: 0 = Not at all Feeling afraid as if something awful might happen: 0 = Not at all Total UTE-7 score (0-4 normal; 5-9 mild; 10-14 moderate; 15-21 severe): 5 Source: Developed by Drs. Ferny Mina, Ella Mccabe, Ubaldo Horn and colleagues, with an educational madeleine from [email or web address]. Review of Systems Const Denies poor appetite and Denies weakness Eyes Denies no additional complaints ENT Reports Normal hearing present, Denies dizziness, Denies nasal congestion, Denies tinnitus and Denies sore throat Card Denies chest pain, Denies syncope, Denies rapid heart rate and Denies dyspnea Resp Denies cough and Denies dyspnea GI Denies change in stool character, Reports constipation, Denies diarrhea, Denies nausea and Denies vomiting Denies dysuria and Denies urinary frequency Neuro Reports Normal hearing present, Denies confusion, Denies dizziness, Denies syncope and Denies weakness Psych Denies confusion Physical exam (Primary Care) Vital Signs: Last Vital Signs Temp 97.0 F 12/01/24 11:21 Pulse 138 H 12/01/24 11:21 BP 128/72 12/01/24 11:21 Pulse Ox 97 12/01/24 11:21 Oxygen Delivery Method Room Air 12/01/24 11:21 BMI result Body Mass Index 25.4 Tobacco/Smoking Status: Tobacco use Status Tobacco use date assessed 12/01/24 12/01/24 11:23 Patient Tobacco Use Status Former Tobacco user 12/01/24 11:23 Tobacco use type Cigarette 12/01/24 11:23 e-Cigarette/Vaping Use Never Used 12/01/24 11:23 PHQ-9: PHQ-9 Score PHQ-9: Total score 0 12/01/24 11:23 Thrive Assessment: Date of Thrive Assessment Date Thrive assessed 06/23/24 12/01/24 11:23 Currently or been in a relationship where the following occur: No concerns reported Const General: No confusion Orientation/consciousness: No confusion HENMT Head: Yes normocephalic Ears: external ears normal and TM's normal bilaterally Face and sinus: Yes normal facial exam Mouth: moist mucous membranes Throat: Yes tonsils normal Eyes Conjunctivae: conjunctivae normal Pupils: Equal, round and reactive pupils present and Pupil accommodation reflex normal Direct Ophthalmoscopy: normal light reflex Neck Neck: No lymphadenopathy Thyroid: Thyroid normal Chest Chest palpation & inspection: normal inspection of the chest Resp Effort & Inspection: normal respiratory effort and no audible wheezes Auscultation: clear to auscultation bilaterally, no crackles, no wheezes and lung sounds not diminished Cardio Rate: regular rate Rhythm: regular rhythm Peripheral pulses: radial pulses present and dorsalis pedis present GI Palpation (GI): no masses Auscultation: normal bowel sounds and normoactive bowel sounds Rectal Exam - Male: Yes deferred Skin General skin exam: no rashes or lesions noted Rashes: no rashes Neuro General: No confusion Cranial nerves: Yes Equal, round and reactive pupils present and Yes Normal hearing present Cognition (Neuro): normal cognition Gait exam (Neuro): Normal gait present Motor exam (neuro): 5/5 motor strength present throughout Deep tendon reflexes (DTR's): Right brachioradialis reflex intensity grade: 2+, Left brachioradialis reflex intensity grade: 2+, Right patellar reflex intensity grade: 2+ and Left patellar reflex intensity grade: 2+ Extrem General: No edema Coding Level of Care Code Est Pt Prev Care 40-64y(76526) Diagnoses Annual physical exam Z00.00 Anemia D64.9 GERD (gastroesophageal reflux disease) K21.9 Impaired glucose tolerance R73.02 Hypercholesterolemia E78.00 Generalized anxiety disorder F41.1 Polysubstance abuse F19.10 Assessment & Plan Assessment & Plan (1) Annual physical exam: Code(s): Z00.00 - Encounter for general adult medical examination without abnormal findings Category: Medical Plan: Patient is advised to eat healthy, keep well hydrated, keep active and have adequate sleep. (2) Anemia: Code(s): D64.9 - Anemia, unspecified Category: Medical Plan: Advised to continue to follow-up. Blood work requested (3) GERD (gastroesophageal reflux disease): Code(s): K21.9 - Gastro-esophageal reflux disease without esophagitis Category: Medical Plan: Avoid the foods that causes that usually spicy foods, tomato products, juices, coffee, soda and foods that your sensitive to. After eating do not lie down, allow 3-4 hours before in lie down. And keep the head of bed above 30 degrees to avoid the acid from going up. (4) Impaired glucose tolerance: Code(s): R73.02 - Impaired glucose tolerance (oral) Category: Medical Plan: Decrease the amount of carbohydrate intake, pasta, bread, rice and potatoes are all sugar and that is aside from all the sweet stuff, remember that fruits are good but they are Sweet also. (5) Hypercholesterolemia: Code(s): E78.00 - Pure hypercholesterolemia, unspecified Category: Medical Plan: Avoid fried foods, chicken skin, eggs, butter margarine, pastries and meat. Be it pork or beef they have a lot of cholesterol LDL goal of less than 130 and triglyceride of less than 150 (6) Generalized anxiety disorder: Comment: Panic attacks declined counseling January 2021, [facility] counselling (10/2021) Code(s): F41.1 - Generalized anxiety disorder Category: Medical Plan: Continue with counseling and therapy (7) Polysubstance abuse: Code(s): F19.10 - Other psychoactive substance abuse, uncomplicated Category: Medical Plan: Continue with methadone clinic Plan History of Present Illness The patient is a 44-year-old male presenting for a physical examination and management of chronic conditions. The patient has a history of impaired glucose tolerance, monitored through regular blood tests, with the last showing elevated blood sugar but normal hemoglobin A1c. He also has hypercholesterolemia, with an LDL level of 131 mg/dL, and aims to maintain an LDL goal of less than 130 mg/dL. Gastroesophageal reflux disease (GERD) is managed by avoiding spicy foods, and he monitors heartburn frequency. The patient has generalized anxiety disorder, treated with Wellbutrin and clonazepam, with Wellbutrin aiding sleep when taken at night. White coat hypertension is noted, with normal blood pressure readings during this visit. Anemia was identified in his last blood work, with normal iron levels. Health Maintenance - Blood work requested for ongoing monitoring of chronic conditions - Advised to maintain LDL cholesterol goal of less than 130 mg/dL and triglycerides of less than 150 mg/dL - Counseling and therapy continuation for anxiety management Social History - Substance use: History of polysubstance abuse, currently uses marijuana - Smoking: Does not smoke cigarettes - Alcohol: Does not consume alcohol - Family history: Grandmother had lung cancer, uncle had dementia, father has heart problems Review of Systems - Cardiovascular: Denies chest pain, orthopnea, or syncope - Respiratory: Denies dyspnea, cough, or wheezing - Gastrointestinal: Reports heartburn exacerbated by spicy foods, denies nausea or vomiting - Neurological: Denies dizziness, headaches, or balance issues - Genitourinary: Reports nocturia once or twice per night, denies dysuria or hematuria Physical Exam General: Cooperative, healthy appearing, comfortable, no acute distress and well developed Orientation: Patient oriented x3 Limitations: No limitations Head: Normal to inspection Ears: Hearing grossly normal bilaterally Nose: Normal external nose present Face and sinus: Normal facial exam Eyes: Appearance normal, both eyes and all related structures; patient recently got glasses Neck: Normal visual inspection and Yes full ROM Respiratory: Normal respiratory effort and able to speak in complete sentences. Clear to auscultation bilaterally Cardiovascular: Regular rate and rhythm. Normal S1 and S2 GI: Normal to inspection. Soft to palpation and nontender; patient reports heartburn with certain foods Skin: No rashes or lesions noted Neuro: Patient oriented x3 Extremities: Normal to inspection Results - Labs: Anemia with hemoglobin 12.9 g/dL and hematocrit 38.1%, normal iron levels - Labs: Elevated blood sugar, normal hemoglobin A1c - Labs: LDL cholesterol 131 mg/dL Plan Patient was informed and verbally consented to the use of an ambient scribe for clinic note documentation during this visit. 1. Impaired Glucose Tolerance The patient will continue monitoring blood glucose levels with regular blood tests and is advised to make lifestyle modifications, including diet and exercise, to manage glucose levels. 2. Hypercholesterolemia The patient is advised to maintain an LDL cholesterol goal of less than 130 mg/dL and triglycerides of less than 150 mg/dL through dietary modifications and regular exercise. 3. Gastroesophageal Reflux Disease (Gerd) The patient is advised to avoid foods that exacerbate symptoms, such as spicy foods, and to monitor the frequency of heartburn to assess the need for further intervention. 4. Generalized Anxiety Disorder The patient will continue with Wellbutrin and clonazepam for anxiety management and is recommended to continue counseling and therapy to support mental health. 5. White Coat Hypertension Blood pressure will be monitored regularly to ensure it remains within normal limits. 6. Anemia The patient will continue monitoring hemoglobin levels with regular blood tests, and since iron levels are normal, no supplementation is currently required. Discussion Notes During the visit, we discussed the management of the patient's chronic conditions, including impaired glucose tolerance, hypercholesterolemia, GERD, generalized anxiety disorder, white coat hypertension, and anemia. We emphasized the importance of lifestyle modifications, such as diet and exercise, to manage glucose and cholesterol levels. The patient was advised to avoid foods that exacerbate GERD symptoms and to continue with prescribed medications for anxiety management. Regular monitoring of blood pressure and hemoglobin levels was recommended. Patient Instructions - Continue monitoring blood glucose and cholesterol levels with regular blood tests. - Maintain a healthy diet and exercise regularly to manage glucose and cholesterol levels. - Avoid foods that trigger GERD symptoms, such as spicy foods. - Continue taking Wellbutrin and clonazepam as prescribed for anxiety management. - Attend regular counseling and therapy sessions to support mental health. - Monitor blood pressure regularly to ensure it remains within normal limits. - Follow up with regular blood tests to monitor hemoglobin levels. Orders: Orders Complete Blood Count Auto Diff Today D64.9 - Anemia, unspecified Comprehensive Met. Panel Today D64.9 - Anemia, unspecified Ferritin Today D64.9 - Anemia, unspecified Free T4 (Free Thyroxine) Today D64.9 - Anemia, unspecified Lipid Panel Today D64.9 - Anemia, unspecified, E78.00 - Pure hypercholesterolemia, unspecified IRON PROFILE Today D64.9 - Anemia, unspecified Thyroid Stimulating Hormone Today D64.9 - Anemia, unspecified Hemoglobin A1c Today D64.9 - Anemia, unspecified Reticulocyte Count Today D64.9 - Anemia, unspecified Vitamin B12 and Folate Today D64.9 - Anemia, unspecified
== END 2024-12-01 12:15 | disposition home or self-care (01) ==
LOC: HO.HMCH 11:18
PROVIDERS: PCP Internal Medicine; Visit Provider Internal Medicine
DX: Z00.00 Encounter for general adult medical examination without abnormal findings (principal); F19.10 Other psychoactive substance abuse, uncomplicated; D64.9 Anemia, unspecified; K21.9 Gastro-esophageal reflux disease without esophagitis; R73.02 Impaired glucose tolerance (oral); E78.00 Pure hypercholesterolemia, unspecified; F41.1 Generalized anxiety disorder

== ENCOUNTER → 2024-12-01 11:18 | Outpatient (BNVA) | payer OTHER, SELFPAY | PROVIDERS: PCP Internal Medicine; Visit Provider Internal Medicine | DX: Z00.00 Encounter for general adult medical examination without abnormal findings (principal); D64.9 Anemia, unspecified; K21.9 Gastro-esophageal reflux disease without esophagitis; R73.02 Impaired glucose tolerance (oral); E78.00 Pure hypercholesterolemia, unspecified; F41.1 Generalized anxiety disorder; F19.10 Other psychoactive substance abuse, uncomplicated; Z13.30 Encounter for screening examination for mental health and behavioral disorders, unspecified | CPT/HCPCS: 99396 ==

== ENCOUNTER 2025-03-23 06:58 | Outpatient (REF) | payer OTHER, SELFPAY ==
[2025-03-23 07:08] LABS: MANUAL DIFF FLAG NO
[2025-03-23 07:19] LABS: Hematocrit 40.3 % (42.0-52.0); Hemoglobin 13.5 g/dl (14.0-18.0); Imm Gran Abs Auto 0.02 X10*3/uL (0.00-0.03); Imm Gran Pct Auto 0.2 % (0.0-0.4); Lymphocytes Absolute Auto 2.9 X10*3/uL (1.2-4.9); Mean Corpuscular HGB Conc 33.5 g/dl (31.0-36.0); Mean Corpuscular Hemoglobin 28.9 pg (27.0-33.0); Mean Corpuscular Volume 86.3 fL (80.0-98.0); NRBC Abs Auto 0.000 X10*3/uL (0.0-0.012); NRBC Pct Auto 0.0 /100WBC (0.0-0.2); Platelet Count 335 X10*3/uL (160-400); Red Blood Count 4.67 X10*6/uL (4.60-5.80); Reticulocytes Absolute 0.060 X10*6/uL (0.026-0.095); White Blood Count 10.6 X10*3/uL (4.8-10.8)
[2025-03-23 07:55] LABS: Alanine Aminotransferase 44 U/L (0-40); Albumin Level 4.6 g/dL (3.5-5.0); Alkaline Phosphatase 111 U/L (39-117); Anion Gap 11 (12-20); Aspartate Amino Transferase 31 U/L (5-37); Blood Urea Nitrogen 11 mg/dL (9-16); Calcium 9.6 mg/dL (8.4-10.2); Carbon Dioxide 30 mmol/L (22-29); Chloride 103 mmol/L (96-108); Cholesterol 242 mg/dL (<200); Estimated Glomerular Filt Rate > 60; HDL Cholesterol 35 mg/dL (>40); Iron 57 mcg/dL (45-160); Percent Iron Saturation 25 % (15-50); Potassium 4.2 mmol/L (3.3-5.1); Sodium 140 mmol/L (135-145); Total Iron Binding Capacity 231 mcg/dL (228-428); Total Protein 7.0 g/dL (6.5-8.0); Triglycerides 169 mg/dL (<150); Unsaturated Iron Binding 174 ug/dL
[2025-03-23 08:18] LABS: Ferritin 136 ng/mL (20-250); Free T4 (Free Thyroxine) 0.96 ng/dL (0.71-1.85); Thyroid Stimulating Hormone 2.21 uIU/mL (0.32-4.0)
[2025-03-23 08:26] LABS: Folate 6.1 ng/mL (> or = 4.0); Vitamin B12 857 pg/mL (200-900)
== END 2025-03-23 06:59 | disposition home or self-care (01) ==
LOC: HO.LAB 06:58
PROVIDERS: PCP Internal Medicine; Visit Provider Internal Medicine
DX: F41.1 Generalized anxiety disorder (principal); E78.00 Pure hypercholesterolemia, unspecified; D64.9 Anemia, unspecified; R73.02 Impaired glucose tolerance (oral); K21.9 Gastro-esophageal reflux disease without esophagitis; R00.0 Tachycardia, unspecified; R79.89 Other specified abnormal findings of blood chemistry
CPT/HCPCS: 36415; 80053; 80061; 82607; 82728; 82746; 83036; 83540; 84439; 84443; 85025; 85045; 99212

== ENCOUNTER 2025-03-23 08:35 | Outpatient (AMB) | payer OTHER, SELFPAY ==
[2025-03-23 08:41] VITALS: BP 130/76; PULSE 120; O2SAT 98; BMI 25.1
--- NOTE | 2025-03-23 08:41 | MHC.PC.OV ---
Vital Signs 03/23/25 08:41 Height 5 ft 9 in Weight 170 lb BMI 25.1 BP 130/76 Blood Pressure Location Lt brachial Position Sitting Pulse 120 H Pulse Source Pulse Oximeter Pulse Oximetry (%) 98 Oxygen Delivery Method Room Air Intake Visit Reasons: 3 month f/u Intake Note: Cold symptoms Allergies No Known Allergies Allergy (Verified 03/23/25 08:41) Tobacco use date assessed: 12/01/24 Dental Screening Dental Screen Date: 06/23/24 HPI HPI Comments History of Present Illness Details History of Present Illness The patient is a 44 year old male presenting for a follow-up visit for management of multiple chronic conditions including GERD, hypercholesterolemia, impaired glucose tolerance, a history of polysubstance abuse, and generalized anxiety disorder. He was last seen in November 2024. He has a history of tachycardia, for which he was referred to cardiology in June 2024. A cardiology workup including a Holter monitor and echocardiogram was negative, with the tachycardia thought to be most likely driven by his anxiety. Previous lab work from March 23, 2025, revealed mild anemia (hemoglobin 13.5, hematocrit 40.3), elevated blood sugar with a normal hemoglobin A1c, elevated liver function, and high cholesterol. Electrolytes, renal function, B12, folic acid, and thyroid levels were all within normal limits at that time. The patient reports a history of long-standing pain in his lower back and upper thighs. He has a family history of polymyositis in his father. He previously attempted an MRI for his back but was unable to complete the procedure due to a panic attack. Socially, the patient denies alcohol use but reports smoking marijuana, which he obtains from a dispensary. He admits his diet has been poor recently. Health Maintenance - Vaccinations: Patient reports he is up to date with his vaccines. - Dietary counseling: Recommended eating a healthier diet, with less animal protein (pork, beef), less butter, and switching from whole milk to 1% or skim milk. - Advised to eat more green leafy vegetables and be mindful of fruit intake due to sugar content. - Advised against eating fast foods. - Substance use counseling: Advised to switch from smoking marijuana to using edibles to reduce the associated risk of cancer. - Lifestyle counseling: Advised to engage in clean living, stay active, and drink enough water. Social History - Substance Use: Patient has a history of polysubstance abuse. - He currently smokes marijuana, which he reports obtaining from a dispensary. - He denies alcohol use. - Nutritional Intake: Patient admits his diet has been dog shit lately. - He was counseled to eat healthier by reducing animal proteins, butter, and whole milk, while increasing green leafy vegetables and being mindful of fruit intake. - Activity Level: He was advised to keep himself active. Results - Labs (Current Visit - Non-fasting): - Blood Sugar: 136 mg/dL (Normal fastin-99 mg/dL). - Liver Function Test: One enzyme elevated at 44 (Normal: <40). - Iron: Levels are adequate. - Lipid Panel: Total cholesterol 242 mg/dL (Previously 193; Goal <200), LDL cholesterol 174 mg/dL (Previously 130; Goal <130), Triglycerides 169 mg/dL (Previously 130; Goal <150). - Labs (March 23, 2025): - CBC: Mild anemia, with a hemoglobin of 13.5 and hematocrit of 40.3. - CMP: Normal electrolytes, good renal function, elevated blood sugar. - Hemoglobin A1c: Normal. - Other: B12, folic acid, and thyroid levels were within normal limits. - Previous Cardiology Workup (June 2024): - Holter monitor: Negative. - Echocardiogram: Negative. [facility] Medical History Diarrhea Hypercholesterolemia GERD (gastroesophageal reflux disease) Anxiety and depression Polysubstance abuse Surgical History No pertinent past surgical history Family History Father CVD (cardiovascular disease) Mother No problems noted. Paternal Grandmother Lung cancer Paternal Grandfather Cancer Maternal Uncle Dementia Other Substance use disorder Social History Housing: House Alcohol intake: never Patient Tobacco Use Status: Former Tobacco user Tobacco use type: Cigarette Years Smoked: marijuana e-Cigarette/Vaping Use: Never Used Second Hand Smoke Exposure: Yes service: No Current occupational status: unemployed Cognitive needs: No Hearing needs: No Vision needs: No Questionnaire Thrive Questionnaire Date Thrive assessed: 12/01/24 I am a: Patient What is your living situation today?: I have a steady place to live Within the past 12 months, did the food you bought not last and you didn't have the money to get more?: Never true Within the past 12 months, did you worry whether your food would run out before you got money to buy more?: Never true Do you have trouble paying for medicines?: No Do you have trouble getting transportation to medical appointments?: No Do you have trouble paying your heating and electricity bill?: No Do you have trouble taking care of your child, family member or friend?: No Do you have trouble with day-to-day activities such as bathing, preparing meals, shopping, managing finances, etc.?: No Are you currently unemployed and looking for a job?: Yes Are you interested in more education?: No Currently or been in a relationship where the following occur: No concerns reported THRIVE Score: 0 UTE-7 AMB Questionnaire UTE-7 Date UTE - 7 assessed: 06/23/24 Source: Developed by Drs. Ferny Mina, Ella Mccabe, Ubaldo Horn and colleagues, with an educational madeleine from [employer]. Review of Systems Narrative Review of Systems - Psychiatric: Reports history of generalized anxiety disorder, which he feels is under control. - He reports having a panic attack during a previous MRI attempt. - Cardiovascular: Denies current symptoms. History of tachycardia. - Musculoskeletal: Reports ongoing pain in his lower back and upper legs. Physical exam (Primary Care) Vital Signs: Last Vital Signs Pulse 120 H 03/23/25 08:41 BP 130/76 03/23/25 08:41 Pulse Ox 98 03/23/25 08:41 Oxygen Delivery Method Room Air 03/23/25 08:41 BMI result Body Mass Index 25.1 Tobacco/Smoking Status: Tobacco use Status Tobacco use date assessed 12/01/24 03/23/25 08:46 Patient Tobacco Use Status Former Tobacco user 03/23/25 08:46 Tobacco use type Cigarette 03/23/25 08:46 e-Cigarette/Vaping Use Never Used 03/23/25 08:46 Thrive Assessment: Date of Thrive Assessment Date Thrive assessed 12/01/24 03/23/25 08:46 Currently or been in a relationship where the following occur: No concerns reported Narrative Physical Exam Const General: alert; No acute distress Eyes Conjunctivae: conjunctivae normal Resp Auscultation: clear to auscultation bilaterally Cardio Rate: regular rate Rhythm: regular rhythm GI Inspection: Yes normal to inspection Extrem General: Yes normal to inspection and No edema Coding Level of Care Code Est Pt Level 4 (63245) Add On Problem Visit Only Diagnoses Generalized anxiety disorder F41.1 Impaired glucose tolerance R73.02 GERD (gastroesophageal reflux disease) K21.9 Anemia D64.9 Hypercholesterolemia E78.00 Tachycardia R00.0 LFTs abnormal R79.89 Assessment & Plan Assessment & Plan (1) Generalized anxiety disorder: Comment: Panic attacks declined counseling January 2021, [facility] counselling (10/2021) Code(s): F41.1 - Generalized anxiety disorder Category: Medical Plan: Continue with counseling and therapy (2) Impaired glucose tolerance: Code(s): R73.02 - Impaired glucose tolerance (oral) Category: Medical Plan: Decrease the amount of carbohydrate intake, pasta, bread, rice and potatoes are all sugar and that is aside from all the sweet stuff, remember that fruits are good but they are Sweet also. (3) GERD (gastroesophageal reflux disease): Code(s): K21.9 - Gastro-esophageal reflux disease without esophagitis Category: Medical Plan: Avoid the foods that causes that usually spicy foods, tomato products, juices, coffee, soda and foods that your sensitive to. After eating do not lie down, allow 3-4 hours before in lie down. And keep the head of bed above 30 degrees to avoid the acid from going up. (4) Anemia: Code(s): D64.9 - Anemia, unspecified Category: Medical Plan: Continue to monitor. Stable (5) Hypercholesterolemia: Code(s): E78.00 - Pure hypercholesterolemia, unspecified Category: Medical Plan: Avoid fried foods, chicken skin, eggs, butter margarine, pastries and meat. Be it pork or beef they have a lot of cholesterol LDL goal of less than 130 and triglyceride of less than 150 (6) Tachycardia: Comment: Cardiology June 2024 Code(s): R00.0 - Tachycardia, unspecified Category: Medical Plan: Patient has met with Cardiology in June 2024, anxiety driven workup negative (7) LFTs abnormal: Code(s): R79.89 - Other specified abnormal findings of blood chemistry Category: Medical Plan Plan Patient was informed and verbally consented to the use of an ambient scribe for clinic note documentation during this visit. 1. Hypercholesterolemia The patient's recent non-fasting labs show significant hypercholesterolemia with a total cholesterol of 242, LDL of 174, and triglycerides of 169, which have worsened since previous testing. The LDL goal is less than 130 and triglyceride goal is less than 150. A plan was made to address this through significant dietary changes, including reducing animal proteins, butter, and whole milk, while increasing green leafy vegetables. Cholesterol levels will be retested in 3 months. 2. Elevated Liver Enzymes One of the patient's liver enzymes is newly elevated at 44, with a normal range being below 40. The cause is unclear, and the patient denies alcohol consumption. The plan is to repeat the blood work in a few weeks and to order an ultrasound of the liver to further evaluate. 3. Hyperglycemia, Rule Out Type 2 Diabetes Mellitus A non-fasting blood sugar level was high at 136. While the patient was not fasting, having consumed coffee with sugar, this level is concerning as a fasting level of 126 is diagnostic for diabetes. The plan is to repeat a fasting blood sugar test in 2-3 weeks to clarify the diagnosis. 4. Mild Anemia The patient has a stable, mild anemia with a hemoglobin of 13.5, where the normal for males is 14. Given that it is not severe, an invasive workup such as a bone marrow biopsy is not indicated at this time. The plan is to continue monitoring. 5. Generalized Anxiety Disorder The patient has a history of generalized anxiety disorder and reports it is currently under control, though he is not seeing a counselor or therapist. He has a history of panic attacks, notably during a previous attempt at an MRI. The plan is to continue monitoring his anxiety. 6. Low Back And Leg Pain The patient reports chronic pain in his lower back and upper legs and is concerned about a possible hereditary condition, as his father had polymyositis. The plan is to check inflammatory markers in his upcoming blood work. Discussion Notes I discussed the results of his recent labs, highlighting the significantly elevated cholesterol, high blood sugar, and a new mild elevation in a liver enzyme. I explained that although his blood sugar was drawn in a non-fasting state, the level of 136 is concerning for diabetes, and we will need to recheck this with a fasting test. Regarding his liver, I informed him we need to investigate the elevated enzyme with an ultrasound and repeat blood work. We had a detailed discussion about the necessity of dietary changes to manage his high cholesterol, focusing on reducing unhealthy fats and promoting healthier eating habits, such as avoiding fast food. I also advised him on the benefits of clean living, staying active, and adequate hydration. In relation to his marijuana use, I counseled him that using edibles is a safer alternative to smoking due to the increased cancer risk associated with smoking. I reassured him about his mild, stable anemia, explaining it does not warrant invasive testing at this time. I acknowledged his concerns about his back and leg pain and his family history, and informed him that we will check for inflammation markers in his blood. The follow-up plan was set for 3 months to recheck cholesterol, with repeat labs for blood sugar and liver enzymes to be done in 2-3 weeks. Patient Instructions - It is very important to eat a healthier diet. - Try to eat less animal meat like pork and beef, use less butter, and switch to 1% or skim milk. - Eat more green leafy vegetables, but be mindful that fruits also contain sugar. - Avoid fast foods. - Please return in 2-3 weeks for a fasting blood test (nothing to eat or drink except water for at least 8 hours beforehand). - You will be called by the imaging department to schedule an ultrasound of your liver. - If you continue to use marijuana, consider using edibles instead of smoking to lower your risk of cancer. - Stay active and drink plenty of water. - Schedule a follow-up appointment in 3 months to review your progress and recheck your cholesterol. Orders: Orders Comprehensive Met. Panel 2 Weeks R79.89 - Other specified abnormal findings of blood chemistry Hepatitis B,C Profile Today R79.89 - Other specified abnormal findings of blood chemistry US abdomen complete Today R79.89 - Other specified abnormal findings of blood chemistry Hemoglobin A1c Today R73.02 - Impaired glucose tolerance (oral) Blood Urea Nitrogen Today R73.02 - Impaired glucose tolerance (oral) Lipid Panel 3 Months E78.00 - Pure hypercholesterolemia, unspecified, R73.02 - Impaired glucose tolerance (oral) Erythrocyte Sedimentation Rate Today R73.02 - Impaired glucose tolerance (oral) C Reactive Protein Today R73.02 - Impaired glucose tolerance (oral) Complete Blood Count Auto Diff 2 Months R73.02 - Impaired glucose tolerance (oral)
== END 2025-03-23 09:18 | disposition home or self-care (01) ==
LOC: HO.HMCH 08:36
PROVIDERS: PCP Internal Medicine; Visit Provider Internal Medicine
DX: F41.1 Generalized anxiety disorder (principal); R73.02 Impaired glucose tolerance (oral); K21.9 Gastro-esophageal reflux disease without esophagitis; D64.9 Anemia, unspecified; E78.00 Pure hypercholesterolemia, unspecified; R00.0 Tachycardia, unspecified; R79.89 Other specified abnormal findings of blood chemistry